=== PATIENT | male | born 1960 | race Two or more races ===

== ENCOUNTER 2020-05-03 13:26 | Emergency (ER) | payer MEDICAID, OTHER ==
[~2020-05-03] VITALS: Ht 170.2 cm; Wt 68.0 kg
--- NOTE | 2020-05-03 13:26 | NUR ---
PT FÉLIX FROM [facility] C/O COUGH AND CONGESTION, NAUSEA AND VOMITING. PT IS AAOX4, NOT IN RESPIRATORY DISTRESS, HOOKED TO SHORT GOODS DRIER, KEPT RESTED AND COMFORTABLE. WILL CONTINUE TO MONITOR.
--- NOTE | 2020-05-03 13:45 | NUR ---
IV LINE ESTABLISHED BLOOD DRAWN AND SENT TO LAB.
[2020-05-03] MEDS ORDERED: IV NS 0.9% 1,000 ML BAG IV ONE (14:30)
[2020-05-03] MEDS ORDERED: ACETAMINOPHEN ES 500 MG TABLET ONE (14:35)
--- NOTE | 2020-05-03 14:39 | NUR ---
URINAL GIVEN BUT UNABLE TO PROVIDE URINE SPECIMEN THIS TIME.
--- NOTE | 2020-05-03 14:40 | NUR ---
AIRBRUSH ARTIST PHOTOGRAPHY AT BEDSIDE FOR XRAY.
[2020-05-03 14:58] LABS: BASOPHILS % (AUTO) 0.5 % (0.0-2.0); EOSINOPHILS % (AUTO) 1.3 % (0.0-6.0); HEMATOCRIT 40 % (39-51); HEMOGLOBIN 13.5 g/dL (13.5-17.5); LYMPHOCYTES % (AUTO) 43.2 % (20.0-44.0); MEAN CORPUSCULAR HGB CONC 34 g/dl (31.0-36.0); MEAN CORPUSCULAR VOLUME 108 fL (80-96); MONOCYTES # (AUTO) 0.5 /CMM (0.1-1.30); MONOCYTES % (AUTO) 10.2 % (2.0-12.0); NEUTROPHILS # (AUTO) 2.1 /CMM (1.8-8.9); NEUTROPHILS % (AUTO) 44.8 % (43.0-81.0); PLATELET COUNT (AUTO) 138 /CMM (150-450); WHITE BLOOD COUNT (AUTO) 4.6 K/uL (4.3-11.0)
[2020-05-03] MEDS ORDERED: ACETAMINOPHEN 325 MG TABLET PO ONE (15:00)
[2020-05-03 15:01] LABS: CALCIUM, SERUM 8.5 mg/dL (8.5-10.1); CARBON DIOXIDE 27 mmol/L (21-32); CHLORIDE 102 mmol/L (98-107); CREATININE 0.6 mg/dL (0.6-1.3); GLUCOSE 75 mg/dL (74-106); POTASSIUM 3.1 mmol/L (3.5-5.1); SODIUM SERUM 140 mmol/L (136-145); UREA NITROGEN, BLOOD 10 mg/dL (7-18)
[2020-05-03 15:16] LABS: ALANINE AMINOTRANSFERASE 44 U/L (12-78); ALBUMIN 3.5 g/dL (3.4-5.0); ALKALINE PHOSPHATASE 75 U/L (46-116); ASPARTATE AMINOTRANSFERASE 146 U/L (15-37); BILIRUBIN,DIRECT 0.1 mg/dL (0.0-0.2); BILIRUBIN,TOTAL 0.4 mg/dL (0.2-1.0); TOTAL PROTEIN, SERUM 6.5 g/dL (6.4-8.2)
--- NOTE | 2020-05-03 15:58 | NUR ---
COVID SWAB OBTAINED AND SENT TO LAB.
--- NOTE | 2020-05-03 15:59 | NUR ---
CALLED [facility]. REFERENCE NUMBER [phone]. WILL CALL BACK WITH TRANSPORT INFO AND ETA.
[2020-05-03 16:40] LABS: BAND % (MANUAL) 1 % (0.0-5.0); LYMPHOCYTES % (MANUAL) 43 % (16-48); MONOCYTES % (MANUAL) 11 % (0-11.0); NEUTROPHILS % (MANUAL) 40 (42-76); REACTIVE LYMPHOCYTES 5 % (0-0)
--- NOTE | 2020-05-03 17:03 | NUR ---
CALLED [facility]. ETA 1 HOUR.
--- NOTE | 2020-05-03 18:05 | NUR ---
REPORT GIVEN TO EMT FOR PT TRANSFER BACK TO [facility].
--- NOTE | 2020-05-03 18:09 | NUR ---
CALLED [facility] FOR PT DISCHARGED BACK.
[2020-05-03 18:14] VITALS: BP 141/84
== END 2020-05-03 18:16 ==
LOC: ER 13:33
DX: R53.1 Weakness (principal); Z87.19 Personal history of other diseases of the digestive system; I11.0 Hypertensive heart disease with heart failure; I50.9 Heart failure, unspecified; J44.9 Chronic obstructive pulmonary disease, unspecified; R05 Cough; R06.02 Shortness of breath; Z20.828 Contact with and (suspected) exposure to other viral communicable diseases
CPT/HCPCS: 36415; 71045; 80048; 80076; 84484; 85025; 87426; 93005; 96360; 99285; J7030

== ENCOUNTER 2021-01-27 22:14 | Inpatient (IN) | payer OTHER ==
[~2021-01-27] VITALS: Ht 170.2 cm; Wt 56.2 kg
[2021-01-28] VITALS (8 sets, daily range): BP systolic 136–185; BP diastolic 91–110
--- NOTE | 2021-01-28 02:00 | NUR ---
TELERN RECEIVED DIRECT ADMITT FROM EMMIE HIGUERA A 60 Y/O MALE WITH CC OF SOB FOR 3 DAYS. DX. EXAC COPD. 02 2 L VIA NASAL CANNULA. EXERTIONAL SOB SEEN, AUDIBLE WHEEZING. WILL NOTIFY MD FOR ADMISSION ORDERS.
--- NOTE | 2021-01-28 02:30 | NUR ---
MSRN PATIENT STATED DID NOT EAT ANYTHING TODAY, SNACKS PROVIDED.
[2021-01-28] MEDS ORDERED: MAG HYDROX/AL HYDROX/SIMETH 30 ML UDC PO PRN (03:00)
[2021-01-28] MEDS ORDERED: ZOLPIDEM TARTRATE 5 MG TABLET PO PRN (03:00)
[2021-01-28] MEDS ORDERED: MAGNESIUM HYDROXIDE 30 ML UDC PO PRN (03:00)
[2021-01-28] MEDS ORDERED: Z GUARD REMEDY 2 OZ OINT TP PRN (03:00)
[2021-01-28] MEDS ORDERED: ACETAMINOPHEN 325 MG TABLET PO PRN (03:00)
[2021-01-28] MEDS ORDERED: ONDANSETRON HCL/PF 4 MG/2 ML VIAL IVP PRN (03:00)
[2021-01-28] MEDS ORDERED: METO-357 PO (03:17)
[2021-01-28] MEDS ORDERED: FLUT1BLS12 IH (03:17)
[2021-01-28] MEDS ORDERED: DEXT15DR6 EACHEYE (03:17)
[2021-01-28] MEDS ORDERED: POTA10CA43 PO (03:17)
[2021-01-28] MEDS ORDERED: ACET-73 PO (03:17)
[2021-01-28] MEDS ORDERED: TIOT18CA3 IH (03:17)
[2021-01-28] MEDS ORDERED: LOPE2CAP PO (03:17)
[2021-01-28] MEDS ORDERED: SERT50TA PO (03:17)
[2021-01-28] MEDS ORDERED: ASPI-1169 PO (03:17)
[2021-01-28] MEDS ORDERED: TAMS-12 PO (03:17)
[2021-01-28] MEDS ORDERED: PANT40TA2 PO (03:17)
[2021-01-28] MEDS ORDERED: AMYL1CAP58 PO (03:17)
[2021-01-28] MEDS ORDERED: SUCR1TAB31 PO (03:17)
[2021-01-28] MEDS ORDERED: ATOR20TA PO (03:17)
[2021-01-28] MEDS ORDERED: ALBU0.633 IH (03:17)
[2021-01-28] MEDS ORDERED: MIRT15TA7 PO (03:17)
[2021-01-28] MEDS ORDERED: POLYVINYL ALCOHOL 15 ML BOTTLE OP PRN (04:30)
--- NOTE | 2021-01-28 04:30 | NUR ---
TELERN FOUND IN RESTROOM HAVING BM. SEEN VERY SOB. ASSISTED BACK TO BED. PER REMEDIATION PROJECT ENGINEER REFUSED TO USE BSC OR BEDPAN. BEDREST INSTRUCTED AT THIS TIME. PAGED RT. NOTIFIED MD NEED PRN HHN TREATMENT AND MED FOR LOOSE STOOLS. PATIENT STATED HAD 2 LBM LATELY. HAS HX OF CDIFF PER RECORDS.
[2021-01-28] MEDS ORDERED: LOPERAMIDE HCL (2 MG CAP) 2 MG CAPSULE PO ONE (05:00)
[2021-01-28] MEDS ORDERED: LOPERAMIDE HCL (2 MG CAP) 2 MG CAPSULE PO PRN (05:00)
[2021-01-28] MEDS ORDERED: ALBUTEROL FS 2.5 MG/3 ML VIAL.NEB NEB PRN (05:00)
[2021-01-28] MEDS: ALBUTEROL FS 2.5 MG/3 ML VIAL.NEB NEB PRN (05:10)
[2021-01-28] MEDS: methylPREDNISolone SOD SUCC 40 MG/ML VIAL IV SCH ×3 (05:17→20:34)
--- NOTE | 2021-01-28 05:21 | NUR ---
TELERN IMMODIUM 2 CAPS ADMINISTERED ORDERED, RT AT BEDSIDE FOR BREATHING TREATMENT. COMPLETE BEDREST EMPHASIZED, SAFETY PRECAUTIONS INSTRUCTED. REMINDED TO CALL STAFF FOR ASSISTANCE OR FURTHER DISCOMFORTS.CONTINUED MONITORING
[2021-01-28 06:22] LABS: ABG BASE EXCESS -6.3 mmol/L; ABG OXYGEN SATURATION 87.8 % (92.0-98.5); ABG PCO2 40.8 mmHg (35.0-45.0); ABG PH 7.301 (7.350-7.450); ABG PO2 58.7 mmHg (75.0-100.0); AaDO2 92.8 mmHg; COHb 1.2 % (0.5-1.5); MetHb 0.1 % (0.0-1.5); O2Hb 86.7 % (94.0-97.0); SITE, ABG Right Radial; VENT MODE, BG N/C 2LPM
--- NOTE | 2021-01-28 06:22 | NUR ---
telern sob again ths time, just went to [facility] had bm. paged rt. abrafael done. xray at bedside. informed dr. VARGAS.
--- NOTE | 2021-01-28 06:25 | NUR ---
TELERN CALLED RAPID RESPONSE, DIFFICULTY BREATHING AFTER CXR WAS DONE. PAGED RT, STAT ABGS ON 2L VIA NC. NOTIFIED MD. CARLTON 261. RT AND ICU CN STAYED WITH PATIENT FOR AWHILE.BREATHING TREATMENT STARTED. ST TO SR ON THE MONITOR. CLOSELY WATCHED
--- NOTE | 2021-01-28 06:35 | NUR ---
TELERN RAPID RESPONSE CALLED OFF, PATIENT TO STAY , ABGS RESULTED.
[2021-01-28] MEDS: ALBUTEROL FS 2.5 MG/3 ML VIAL.NEB NEB SCH ×4 (06:38→19:12)
[2021-01-28 06:42] LABS: BASOPHILS % (AUTO) 1.3 % (0.0-2.0); HEMATOCRIT 39 % (39-51); HEMOGLOBIN 12.9 g/dL (13.5-17.5); LYMPHOCYTES # (AUTO) 0.4 /CMM (0.8-4.8); LYMPHOCYTES % (AUTO) 22.7 % (20.0-44.0); MEAN CORPUSCULAR HGB CONC 33 g/dl (31.0-36.0); MEAN CORPUSCULAR VOLUME 97 fL (80-96); MONOCYTES % (AUTO) 2.5 % (2.0-12.0); NEUTROPHILS # (AUTO) 1.2 /CMM (1.8-8.9); NEUTROPHILS % (AUTO) 73.5 % (43.0-81.0); PLATELET COUNT (AUTO) 110 /CMM (150-450); RED BLOOD CELL COUNT(AUTO) 4.04 MIL/uL (4.5-6.0)
--- NOTE | 2021-01-28 07:00 | NUR ---
TELERN STARTED TO FEEL BETTER THIS TIME, 02 2 L MAINTAINED.
[2021-01-28] MEDS ORDERED: FLUTICASONE/SALMETEROL 1 DISK IH SCH (07:05)
--- NOTE | 2021-01-28 07:30 | NUR ---
PT RECEIVED RESTING IN BED. NO S/S OR C/O PAIN NOTED. SIDERAILS UP X2, CALL LIGHT LEFT WITHIN REACH. WILL CONTINUE PLAN OF CARE.
[2021-01-28] MEDS ORDERED: IPRATROPIUM NEB FS 0.5 MG/2.5 ML AMPUL.NEB NEB PRN (07:35)
[2021-01-28] MEDS: IPRATROPIUM NEB FS 0.5 MG/2.5 ML AMPUL.NEB NEB SCH ×4 (07:35→19:12)
[2021-01-28] MEDS ORDERED: IPRATROPIUM NEB FS 0.5 MG/2.5 ML AMPUL.NEB NEB SCH ×2 (07:35)
[2021-01-28 07:43] LABS: THYROID STIMULATING HORMONE 0.415 uIU/mL (0.358-3.74)
[2021-01-28 07:44] LABS: WHITE BLOOD COUNT (AUTO) 1.7 K/uL (4.3-11.0)
[2021-01-28 08:06] LABS: ALBUMIN 3.3 g/dL (3.4-5.0); BILIRUBIN,TOTAL 0.3 mg/dL (0.2-1.0); CALCIUM, SERUM 7.7 mg/dL (8.5-10.1); MAGNESIUM 1.4 mg/dL (1.8-2.4); PHOSPHORUS 4.2 mg/dL (2.5-4.9); POTASSIUM 3.7 mmol/L (3.5-5.1)
[2021-01-28] MEDS: ASPIRIN 81 MG TAB.CHEW PO SCH (09:27)
[2021-01-28] MEDS: LIPASE/PROTEASE/AMYLASE 1 EACH CAPSULE.DR PO SCH ×3 (09:28→17:21)
[2021-01-28] MEDS: SUCRALFATE 1 G TABLET PO SCH ×4 (09:28→21:54)
[2021-01-28] MEDS: SERTRALINE HCL 50 MG TABLET PO SCH (09:28)
[2021-01-28] MEDS: PANTOPRAZOLE 40 MG TABLET.DR PO SCH (09:29)
[2021-01-28] MEDS: METOPROLOL SUCCINATE 50 MG TAB.SR.24H PO SCH (09:29)
[2021-01-28] MEDS: Magnesium 1GM/D5W 100ML PREMIX 100 ML IV SCH ×4 (10:37→14:53)
[2021-01-28] MEDS: ENOXAPARIN SODIUM 40 MG/0.4 ML DISP.SYRIN SQ SCH (10:38)
[2021-01-28 12:37] LABS: LYMPHOCYTES % (MANUAL) 25 % (16-48); MONOCYTES % (MANUAL) 3 % (0-11.0); NEUTROPHILS % (MANUAL) 72 (42-76)
[2021-01-28] MEDS: FLUTICASONE/VILANTEROL 1 EACH BLST.W.DEV IH SCH (13:01)
[2021-01-28] MEDS: HYDROCODONE/APAP 5/325MG TABLET PO PRN (15:02)
[2021-01-28] MEDS: TAMSULOSIN 0.4 MG CAP.SR.24H PO SCH (17:21)
[2021-01-28] MEDS: MORPHINE SULFATE INJ 2 MG/ML DISP.SYRIN IV PRN ×2 (17:21→22:09)
--- NOTE | 2021-01-28 18:20 | NUR ---
CHANGE OF SHIFT REPORT PT RESTING COMFORTABLY IN BED. NO S/S OR C/O PAIN OR DISTRESS NOTED. SIDE RAILS UP X2. CALL LIGHT LEFT WITHIN REACH. PT KEPT CLEAN, DRY, AND COMFORTABLE NO SIGNIFICANT CHANGES SINCE PREVIOUS SHIFT. WILL GIVE REPORT TO SOO DOOLEY.
--- NOTE | 2021-01-28 19:09 | NUR ---
PRELIMINARY RESULT OF ECHO SHOWED EF 20-25%. ADVISED RN AND DR. REEVES OF INITIAL FINDINGS.
--- NOTE | 2021-01-28 20:00 | NUR ---
PREDATOR CONTROL TRAPPER NOTES PT DESATURATING AT 79% TO 85% AT 15 LPM VIA VENTURI MASK. NOTIFIED INDY DENTAL PROSTHETIST FOR EPIC. WITH NEW ORDERS TO PUT ON NOC BIPAP FOR NOW. ORDERS NOTED AND CARRIED OUT. WILL CONTINUE TO MONITOR.
--- NOTE | 2021-01-28 20:43 | NUR ---
CARBONATING STONE CLEANER NOTES DR CARROLL MADE AWARE RE PT'S CONDITION WITH NEW ORDERS TO TRANSFER PT TO ICU WITH BIPAP. WILL CONTINUE TO MONITOR.
--- NOTE | 2021-01-28 21:45 | NUR ---
MANAGER GAME NOTES PT TRANSFERRED TO ICU ROOM 254. REPORT GIVEN TO KEY RN FOR CONTINUITY OF CARE.
--- NOTE | 2021-01-28 21:50 | NUR ---
RECEIVED PT FROM 3W BY MODESTO RN ON HOSPITAL BED AWAKE A/O X3 ON VENTURI MASK 15L SPO2 92% NO SIGN AND SYMPTOMS OF DISTRESS NOTED, PT IS ABLE TO VERBALIZED NEEDS, HOOKED TO BED SIDE MONITOR WITH READING SINUS RHYTHM BP IS WNL, SAFETY MEASURE MAINTAINED BED ON LOWEST POSITION AND LOCKED SIDE RAILS UP X 2 CALL LIGHT WITHIN REACH, RT AT BEDSIDE PREPARING HIS BIPAP WILL CONT TO MONITOR THE PT
[2021-01-28] MEDS: MIRTAZAPINE 15 MG TABLET PO SCH (22:01)
[2021-01-28] MEDS: ATORVASTATIN 10 MG TABLET PO SCH (22:01)
--- NOTE | 2021-01-28 22:15 | NUR ---
RT PUT PT ON BIPAP SETTING PER MD TOLERTAING WELL WILL CONT TO MONITOR AND ABG WILL BE CHECKED AFTER 1 HR ORDER WAS MADE
[2021-01-28 23:33] LABS: ABG BASE EXCESS -2.7 mmol/L; ABG OXYGEN SATURATION 93.1 % (92.0-98.5); ABG PCO2 29.7 mmHg (35.0-45.0); ABG PO2 64.9 mmHg (75.0-100.0); AaDO2 186.1 mmHg; COHb 0.7 % (0.5-1.5); MetHb 0.3 % (0.0-1.5); O2Hb 92.2 % (94.0-97.0); SITE, ABG Right Radial; VENT MODE, BG ST 15/5
[2021-01-29] VITALS (46 sets, daily range): BP systolic 96–139; BP diastolic 67–103
[2021-01-29] MEDS: IPRATROPIUM NEB FS 0.5 MG/2.5 ML AMPUL.NEB NEB SCH ×7 (00:12→23:06)
--- NOTE | 2021-01-29 01:41 | NUR ---
PT RECEIVE WITH SOB ON 40% VENTURI MASK, SPO2 86% HR 120, HHN TX GIVEN AND SPO2 IMPROVE TO 88%, PLACED PT ON BIPAP 12/5 RATE 12 40% FIO2, SPO2 IMPROVE TO 90-92%, WILL CONTINUE TO MONITOR Addendum: 01/29/21 at 0144 by DEBBI ERICKSON RT Amended: Links added.
[2021-01-29 04:30] LABS: HEMATOCRIT 38 % (39-51); HEMOGLOBIN 12.5 g/dL (13.5-17.5); LYMPHOCYTES # (AUTO) 0.8 /CMM (0.8-4.8); LYMPHOCYTES % (AUTO) 10.7 % (20.0-44.0); MEAN CORPUSCULAR HGB CONC 33 g/dl (31.0-36.0); MEAN CORPUSCULAR VOLUME 96 fL (80-96); MONOCYTES # (AUTO) 0.7 /CMM (0.1-1.30); NEUTROPHILS # (AUTO) 5.8 /CMM (1.8-8.9); NEUTROPHILS % (AUTO) 80.3 % (43.0-81.0); PLATELET COUNT (AUTO) 90 /CMM (150-450); RED BLOOD CELL COUNT(AUTO) 3.96 MIL/uL (4.5-6.0); WHITE BLOOD COUNT (AUTO) 7.2 K/uL (4.3-11.0)
[2021-01-29 04:44] LABS: CALCIUM, SERUM 7.5 mg/dL (8.5-10.1); CREATININE 0.8 mg/dL (0.6-1.3); MAGNESIUM 2.4 mg/dL (1.8-2.4); PHOSPHORUS 3.6 mg/dL (2.5-4.9); POTASSIUM 4.2 mmol/L (3.5-5.1)
[2021-01-29] MEDS: methylPREDNISolone SOD SUCC 40 MG/ML VIAL IV SCH ×3 (05:04→20:06)
--- NOTE | 2021-01-29 05:42 | NUR ---
DR CARROLL JUST CALLED, INFORMED HIM THAT PT SPO2 IS ON 100% AND STILL CURRENTLY ON BIPAP, DR CARROLL ORDER TO REMOVED BIPAP AT 0700 AND PUT HIM ON 6L O2 VIA NC AND DO ABG @ 0800 NOTED AND CARRIED OUT, RT WAS INFORMED
--- NOTE | 2021-01-29 06:53 | NUR ---
PT REQUESTED TO REMOVED HIS BIPAP, AND PUT HIM ON O2 6L VIA NC SPO2 94% PT ABLE TO DRINK WATER, WILL CONT TO MONITOR
--- NOTE | 2021-01-29 07:00 | NUR ---
RN NOTES RECEIVED PT ON BED, A/Ox4, ON 6L O2 N/C , PT DENIES ANY DISTRESS , O2 SAT WNL, ON TELE SR HR IN 90'S, LEFT AC IV SITE CLEAN, DRY AND INTACT, SR UP x3, CALL LIGHT WITHIN EASY REACH BED LOCKED AND IN LOWEST POSITION, CONTINUE TO MONITOR .
[2021-01-29] MEDS: ALBUTEROL FS 2.5 MG/3 ML VIAL.NEB NEB SCH ×4 (07:02→19:45)
[2021-01-29] MEDS: PANTOPRAZOLE 40 MG TABLET.DR PO SCH (08:06)
[2021-01-29] MEDS: SUCRALFATE 1 G TABLET PO SCH ×4 (08:07→21:18)
[2021-01-29] MEDS: LIPASE/PROTEASE/AMYLASE 1 EACH CAPSULE.DR PO SCH ×3 (08:07→17:00)
[2021-01-29] MEDS: METOPROLOL SUCCINATE 50 MG TAB.SR.24H PO SCH (08:07)
[2021-01-29] MEDS: SERTRALINE HCL 50 MG TABLET PO SCH (08:07)
[2021-01-29] MEDS: ASPIRIN 81 MG TAB.CHEW PO SCH (08:07)
[2021-01-29] MEDS: FLUTICASONE/VILANTEROL 1 EACH BLST.W.DEV IH SCH (08:09)
[2021-01-29 08:11] LABS: ABG BASE EXCESS -1.3 mmol/L; ABG OXYGEN SATURATION 93.7 % (92.0-98.5); ABG PCO2 31.2 mmHg (35.0-45.0); ABG PO2 67.2 mmHg (75.0-100.0); COHb 0.5 % (0.5-1.5); MetHb 0.1 % (0.0-1.5); O2Hb 93.1 % (94.0-97.0); SITE, ABG Left Radial; VENT MODE, BG 6L NC
[2021-01-29] MEDS: ENOXAPARIN SODIUM 40 MG/0.4 ML DISP.SYRIN SQ SCH (10:19)
[2021-01-29] MEDS: ACETYLCYSTEINE 10% SOLN 400 MG/4 ML VIAL NEB SCH ×3 (11:03→23:06)
[2021-01-29] MEDS: LEVOFLOXACIN 750 MG /D5W 150ML 150 ML IV SCH (11:48)
--- NOTE | 2021-01-29 13:00 | NUR ---
RN NOTES VSS STABLE, NO DISTRESS NOTED , CONTINUE TO MONITOR .
[2021-01-29] MEDS: ENSURE ENLIVE 237 ML LIQUID (VANILLA) PO SCH (16:52)
[2021-01-29] MEDS: TAMSULOSIN 0.4 MG CAP.SR.24H PO SCH (17:00)
--- NOTE | 2021-01-29 18:16 | NUR ---
RN NOTES PT REMAINS ON 3L O2 N/C , O2 SAT WNL, NO SIGNIFICANT CHANGES NOTED ON THIS SHIFT, WILL ENDORSE TO LEAD RIDER NURSE FOR CONTINUITY OF CARE .
--- NOTE | 2021-01-29 19:30 | NUR ---
RN NOTES RECEIVED PATIENT IN BED AOX4, CONTINUES ON 3L/NC SATURATING 98% AT THIS TIME. TELE MONITOR SHOWS SR HR IN 90'S. IV SITE LAC #20G INTACT PATENT NO INFILTRATION NOTED FLUSHING WELL. ABD SOFT AND NON DISTENDED. SKIN DRY AND INTACT. SAFETY MEASURES IN PLACE, CALL LIGHT WITHIN REACH. WILL CONT TO MONITOR FOR RALEIGH.
[2021-01-29] MEDS: HYDROCODONE/APAP 5/325MG TABLET PO PRN (20:17)
[2021-01-29] MEDS: MORPHINE SULFATE INJ 2 MG/ML DISP.SYRIN IV PRN (20:31)
[2021-01-29] MEDS: MIRTAZAPINE 15 MG TABLET PO SCH (21:18)
[2021-01-29] MEDS: ATORVASTATIN 10 MG TABLET PO SCH (21:18)
[2021-01-30] VITALS (22 sets, daily range): BP systolic 102–149; BP diastolic 32–119
[2021-01-30] MEDS: IPRATROPIUM NEB FS 0.5 MG/2.5 ML AMPUL.NEB NEB SCH ×6 (02:36→23:50)
[2021-01-30] MEDS: methylPREDNISolone SOD SUCC 40 MG/ML VIAL IV SCH ×3 (05:06→21:02)
--- NOTE | 2021-01-30 06:32 | NUR ---
RN NOTES NO CHANGES NOTED DURING SHIFT. NO S/S OF ACUTE DISTRESS NOTED. ROUTINE AND PRN MEDICATIONS WERE GIVEN TOLERATED WELL.IV SITES INTACT NO S/S OF BLEEDING NO SWELLING NOTED. VITAL SIGNS WNL. CONTINUES WITH OXYGEN 3L/MIN VIA NC SATURATING 98%. KEPT CLEAN DRY AND COMFORTABLE. ALL NEEDS ATTENDED. WILL ENDORSE TO AM SHIFT FOR RALEIGH.
--- NOTE | 2021-01-30 07:15 | NUR ---
RN INITIAL NOTES RECEIVED PT ASLEEP, EASY TO AROUSE. ON 02 VIA NC AT 3LPM. HOB ELEVATED. NO SOB NOTED. DENIES ANY PAIN. IV LINE IN PLACE. PT COMFORTABLE. CLAL LIGHT WITHIN REACH. WILL MONITOR
[2021-01-30] MEDS: ALBUTEROL FS 2.5 MG/3 ML VIAL.NEB NEB SCH ×4 (07:35→20:05)
[2021-01-30] MEDS: ACETYLCYSTEINE 10% SOLN 400 MG/4 ML VIAL NEB SCH ×3 (07:35→23:50)
[2021-01-30] MEDS: LIPASE/PROTEASE/AMYLASE 1 EACH CAPSULE.DR PO SCH ×3 (07:42→17:02)
[2021-01-30] MEDS: SUCRALFATE 1 G TABLET PO SCH ×4 (07:42→21:03)
[2021-01-30] MEDS: PANTOPRAZOLE 40 MG TABLET.DR PO SCH (07:42)
[2021-01-30] MEDS: SERTRALINE HCL 50 MG TABLET PO SCH (08:21)
[2021-01-30] MEDS: ASPIRIN 81 MG TAB.CHEW PO SCH (08:21)
[2021-01-30] MEDS: LOSARTAN POTASSIUM 50 MG TABLET PO SCH (08:22)
[2021-01-30] MEDS: METOPROLOL SUCCINATE 50 MG TAB.SR.24H PO SCH (08:22)
[2021-01-30] MEDS: ENSURE ENLIVE 237 ML LIQUID (VANILLA) PO SCH ×3 (08:23→16:43)
[2021-01-30] MEDS: ENOXAPARIN SODIUM 40 MG/0.4 ML DISP.SYRIN SQ SCH (08:27)
[2021-01-30] MEDS: LEVOFLOXACIN 750 MG /D5W 150ML 150 ML IV SCH (10:05)
--- NOTE | 2021-01-30 13:00 | NUR ---
RN NOTES PT TRANSFERRED TO ROOM 107. PT A/O, ON 02 VIA NC AT 3LPM. NO SOB NOTED. DENIES ANY PAIN. IV LINE IN PLACE. CALL LIGHT WITHIN REACH. WILL MONITOR
[2021-01-30] MEDS: TAMSULOSIN 0.4 MG CAP.SR.24H PO SCH (17:02)
--- NOTE | 2021-01-30 18:12 | NUR ---
RN CLOSING NOTES NO SIGNIFICANT CHANGE NOTED. NO SOB NOTED. DENIES ANY PAIN. KEPT COMFORTABLE. WILL ENDORSE FOR CONTINUITY IF CARE
--- NOTE | 2021-01-30 19:30 | NUR ---
RN NOTE RECEIVED PATIENT IN BED, AO X 4, IN NO S/SX OF ACUTE DISTRESS AT THIS TIME, BREATHING IS EVEN AND UNLABORED, ON 3 L OF OXYGEN VIA NC, SATURATION AT 96%, SR ON THE MONITOR, HR IS 93. NOTED LEAKAGE OF FLUID FROM IV SITE AT LAC 20G, REMOVED AND RE-INSERTED ANOTHER IV LINE AT L UPPER ARM 20G, PATENT AND FLUSHING WELL, ASEPTIC TEHCNIQUE WAS OBSERVED DURING PROCEDURE. SAFETY MEASURES IMPLEMENTED. PATIENT BED ALARM IS ON. HEAD OF BED ELEVATED. BED IS LOCKED, IN LOWEST POSITION AND SIDE RAILS UP. CALL LIGHT WITHIN REACH OF THE PATIENT. WILL CONTINUE TO MONITOR AND REASSESS FOR ANY CHANGES.
[2021-01-30] MEDS: ATORVASTATIN 10 MG TABLET PO SCH (21:03)
[2021-01-30] MEDS: MIRTAZAPINE 15 MG TABLET PO SCH (21:03)
[2021-01-30] MEDS: MORPHINE SULFATE INJ 2 MG/ML DISP.SYRIN IV PRN (23:07)
[2021-01-31] VITALS: BP 153/98
[2021-01-31] MEDS: IPRATROPIUM NEB FS 0.5 MG/2.5 ML AMPUL.NEB NEB SCH ×6 (03:29→23:26)
[2021-01-31 04:00] VITALS: BP 145/98
[2021-01-31] MEDS: methylPREDNISolone SOD SUCC 40 MG/ML VIAL IV SCH ×3 (05:03→21:47)
[2021-01-31 06:29] LABS: BASOPHILS % (AUTO) 0.1 % (0.0-2.0); HEMATOCRIT 32 % (39-51); HEMOGLOBIN 10.5 g/dL (13.5-17.5); LYMPHOCYTES # (AUTO) 0.3 /CMM (0.8-4.8); LYMPHOCYTES % (AUTO) 8.6 % (20.0-44.0); MEAN CORPUSCULAR HGB CONC 33 g/dl (31.0-36.0); MEAN CORPUSCULAR VOLUME 97 fL (80-96); MONOCYTES # (AUTO) 0.3 /CMM (0.1-1.30); NEUTROPHILS # (AUTO) 3.1 /CMM (1.8-8.9); NEUTROPHILS % (AUTO) 84.3 % (43.0-81.0); PLATELET COUNT (AUTO) 80 /CMM (150-450); RED BLOOD CELL COUNT(AUTO) 3.24 MIL/uL (4.5-6.0); WHITE BLOOD COUNT (AUTO) 3.7 K/uL (4.3-11.0)
--- NOTE | 2021-01-31 07:05 | NUR ---
RN NOTE PATIENT ASLEEP IN BED, NO ACUTE DISTRESS NOTED, SATURATION AT >95% AT 3LPM VIA NC, SR ON THE MONITOR, IV SITE AT LAC 20G REMAINS PATENT. SAFETY MEASURES IMPLEMENTED. PATIENT BED IS LOCKED AND IN LOWEST POSITION. SIDE RAILS UP. CALL LIGHT WITHIN REACH OF THE PATIENT. ENDORSED TO JALEN DOOLEY FOR CONTINUATION OF CARE.
[2021-01-31 07:09] LABS: CALCIUM, SERUM 8.1 mg/dL (8.5-10.1); CREATININE 0.8 mg/dL (0.6-1.3); PHOSPHORUS 2.2 mg/dL (2.5-4.9); POTASSIUM 4.1 mmol/L (3.5-5.1)
--- NOTE | 2021-01-31 07:40 | NUR ---
RN OPENING NOTES RECEIVED PT AWAKE, ALERT, AND ORIENTED. NOT IN ANY RESPIRATORY DISTRESS. ON NASAL CANNULA 3L. TELEMETRY IN PLACE. DIAPER IN. PERIPHERAL LINE ON THE LEFT UPPER ARM. NO COMPLAINS OF PAIN OR DISCOMFORT AT THIS TIME. BED LOCKED AND KEPT IN LOWEST POSITION. SAFETY MEASURES IN PLACE. WILL CONTINUE TO MONITOR.
[2021-01-31] MEDS: PANTOPRAZOLE 40 MG TABLET.DR PO SCH (07:49)
[2021-01-31] MEDS: LIPASE/PROTEASE/AMYLASE 1 EACH CAPSULE.DR PO SCH ×3 (07:49→17:12)
[2021-01-31] MEDS: SUCRALFATE 1 G TABLET PO SCH ×4 (07:49→21:50)
[2021-01-31] MEDS: ALBUTEROL FS 2.5 MG/3 ML VIAL.NEB NEB SCH ×4 (07:53→20:36)
[2021-01-31] MEDS: ACETYLCYSTEINE 10% SOLN 400 MG/4 ML VIAL NEB SCH ×3 (07:53→23:26)
[2021-01-31 08:00] VITALS: BP 162/117
[2021-01-31] MEDS: SERTRALINE HCL 50 MG TABLET PO SCH (08:28)
[2021-01-31] MEDS: ASPIRIN 81 MG TAB.CHEW PO SCH (08:28)
[2021-01-31] MEDS: LOSARTAN POTASSIUM 50 MG TABLET PO SCH (08:29)
[2021-01-31] MEDS: ENSURE ENLIVE 237 ML LIQUID (VANILLA) PO SCH ×3 (08:29→16:51)
[2021-01-31] MEDS: METOPROLOL SUCCINATE 50 MG TAB.SR.24H PO SCH (08:29)
[2021-01-31] MEDS: ENOXAPARIN SODIUM 40 MG/0.4 ML DISP.SYRIN SQ SCH (08:32)
--- NOTE | 2021-01-31 09:00 | NUR ---
RN NOTES BP RE-CHECKED = 150/101
[2021-01-31] MEDS: MORPHINE SULFATE INJ 2 MG/ML DISP.SYRIN IV PRN ×3 (09:44→21:48)
[2021-01-31] MEDS: LEVOFLOXACIN 750 MG /D5W 150ML 150 ML IV SCH (10:18)
[2021-01-31] MEDS ORDERED: K PHOS NEUTRAL 250 MG TABLET PO ONE (11:30)
[2021-01-31 12:00] VITALS: BP 158/103
[2021-01-31 16:00] VITALS: BP 151/104
[2021-01-31] MEDS: TAMSULOSIN 0.4 MG CAP.SR.24H PO SCH (17:12)
--- NOTE | 2021-01-31 19:10 | NUR ---
RN CLOSING NOTES PATIENT'S CONDITION REMAINS UNCHANGED. SATURATING 95% ON 2L NASAL CANNULA. PAIN UNDER CONTROL AT THIS TIME. SAFETY CHECKS IN PLACE. WILL ENDORSE TO NIGHT RN FOR CONTINUITY OF CARE.
[2021-01-31 20:00] VITALS: BP 137/94
[2021-01-31] MEDS: ATORVASTATIN 10 MG TABLET PO SCH (21:48)
[2021-01-31] MEDS: MIRTAZAPINE 15 MG TABLET PO SCH (21:50)
[2021-02-01] VITALS: BP 147/100
[2021-02-01] MEDS: IPRATROPIUM NEB FS 0.5 MG/2.5 ML AMPUL.NEB NEB SCH ×7 (03:30→23:08)
[2021-02-01 04:00] VITALS: BP 116/89
--- NOTE | 2021-02-01 04:45 | NUR ---
RN notes In bed watching TV with no distress noted, breathing even and unlabored. On O2 at 2lpm via nasal cannula tolerating well. No significant change of condition. Alert and oriented x 4. Able to verbalize needs. Non-ambulatory. Incontinent of both bladder and bowel function. Uses diaper. Complained of pain 05/26, morphine 1mg given, with relief. Vital signs wnl. Kept clean and dry.
[2021-02-01] MEDS: methylPREDNISolone SOD SUCC 40 MG/ML VIAL IV SCH ×3 (05:18→21:10)
[2021-02-01] MEDS: MORPHINE SULFATE INJ 2 MG/ML DISP.SYRIN IV PRN ×3 (05:24→21:22)
[2021-02-01 06:36] LABS: CREATININE 0.8 mg/dL (0.6-1.3); MAGNESIUM 1.8 mg/dL (1.8-2.4); PHOSPHORUS 3.6 mg/dL (2.5-4.9); POTASSIUM 3.5 mmol/L (3.5-5.1)
--- NOTE | 2021-02-01 07:30 | NUR ---
DONOR SPECIALIST OPENING NOTES RECEIVED PT ON BED, AAOX4, RESPONSIVE TO ALL STIMULI. TELE MONITOR SHOWS SINUS RHYTHM 90. PT C/O SOB IN EXERTION, ON 3LPM VIA NASAL CANNULA. PT RECEIVING BREATHING TREATMENT AT THIS MOMENT. ABD SOFT AND NON DISTENDED WITH ACTIVE BOWEL SOUNDS. DENIES PAIN AND DISCOMFORT. SKIN WARM TO TOUCH AND DRY. IV SITE AT LEFT FA # 22 PATENT IN FLUSHING, NO S/SX OF INFILTRATION, HEP LOCK. ALL CONCERNS ATTENDED. BED IN LOW LOCKED POSITION, CALL LIGHT WITHIN REACHED, SRX2 UP FOR SAFETY. WILL CONT TO MONITOR CARE.
[2021-02-01] MEDS: SUCRALFATE 1 G TABLET PO SCH ×4 (07:32→21:10)
[2021-02-01] MEDS: PANTOPRAZOLE 40 MG TABLET.DR PO SCH (07:32)
[2021-02-01] MEDS: ALBUTEROL FS 2.5 MG/3 ML VIAL.NEB NEB SCH ×4 (07:34→20:13)
[2021-02-01] MEDS: ACETYLCYSTEINE 10% SOLN 400 MG/4 ML VIAL NEB SCH ×3 (07:34→23:08)
[2021-02-01 08:03] LABS: BASOPHILS % (AUTO) 0.2 % (0.0-2.0); HEMATOCRIT 35 % (39-51); HEMOGLOBIN 11.2 g/dL (13.5-17.5); LYMPHOCYTES # (AUTO) 0.6 /CMM (0.8-4.8); LYMPHOCYTES % (AUTO) 14.9 % (20.0-44.0); MEAN CORPUSCULAR HGB CONC 32 g/dl (31.0-36.0); MEAN CORPUSCULAR VOLUME 99 fL (80-96); MONOCYTES # (AUTO) 0.3 /CMM (0.1-1.30); MONOCYTES % (AUTO) 6.5 % (2.0-12.0); NEUTROPHILS # (AUTO) 3.4 /CMM (1.8-8.9); NEUTROPHILS % (AUTO) 78.4 % (43.0-81.0); PLATELET COUNT (AUTO) 100 /CMM (150-450); RED BLOOD CELL COUNT(AUTO) 3.51 MIL/uL (4.5-6.0); WHITE BLOOD COUNT (AUTO) 4.4 K/uL (4.3-11.0)
[2021-02-01] MEDS: METOPROLOL SUCCINATE 50 MG TAB.SR.24H PO SCH ×2 (08:27→08:51)
[2021-02-01] MEDS: SERTRALINE HCL 50 MG TABLET PO SCH (08:27)
[2021-02-01] MEDS: LIPASE/PROTEASE/AMYLASE 1 EACH CAPSULE.DR PO SCH ×3 (08:27→17:15)
[2021-02-01] MEDS: LOSARTAN POTASSIUM 50 MG TABLET PO SCH (08:27)
[2021-02-01] MEDS: ENOXAPARIN SODIUM 40 MG/0.4 ML DISP.SYRIN SQ SCH (08:28)
[2021-02-01] MEDS: LEVOFLOXACIN (250MG) 250 MG TABLET PO SCH (08:28)
[2021-02-01] MEDS: ASPIRIN 81 MG TAB.CHEW PO SCH (08:28)
[2021-02-01] MEDS: ENSURE ENLIVE 237 ML LIQUID (VANILLA) PO SCH ×2 (08:29→12:26)
[2021-02-01] MEDS: VALSARTAN 80 MG TABLET PO SCH (08:51)
--- NOTE | 2021-02-01 08:51 | NUR ---
TUGBOAT PILOT NOTES RECEIVED NEW ORDER FROM DR. REEVES - TOPROL XL 100 MG TAB. 50 MG GIVEN 20 MINUTES AGO, PULLED OUT ANOTHER 50 MG 1 TAB IN PYXIS TO GIVE NEW ORDER. PT AWARE. PHARMACY AWARE OF THE ACTION. BP 157-107, HR 95.
[2021-02-01 08:57] VITALS: BP 159/107
--- NOTE | 2021-02-01 09:10 | NUR ---
WELL SERVICING RIG OPERATOR NOTES ASSESS PT DUE TO MOANING AT REST, C/O SOB, PT SATING 88% IN RA PER ASSESSMENT, PLACED BACK TO 3LPM VIA N/C. CONT TO MONITOR
[2021-02-01 12:00] VITALS: BP 143/99
[2021-02-01 16:29] VITALS: BP 149/100
[2021-02-01] MEDS: TAMSULOSIN 0.4 MG CAP.SR.24H PO SCH (17:15)
[2021-02-01] MEDS: ENSURE ENLIVE CHOC 237 ML CAN PO SCH (17:16)
--- NOTE | 2021-02-01 18:49 | NUR ---
SPORTS MANAGEMENT INTERN CLOSING NOTES PT AAOX4, IMPROVED SOB, 2-3 LPM NASAL CANNULA SATING 96-98%. BM TODAY. DENIES PAIN AND DISCOMFORT. NO NEW SKIN BREAKDOWN. TELE MONITOR SHOWS SINUS RHYTHM 86. IV SITE AT RIGHT FA # 22, PATENT IN FLUSHING, PRESENT OF BACKFLOW, SO S/SX OF INFILTRATION, SALINE LOCK. ALL CONCERNS ATTENDED. BED KEPT IN LOW LOCKED POSITION, SRX2 UP FRO SAFETY, SEMI FOWLERS POSITION. ALL CARE ATTENDED. ENDORSED CARE TO NEXT SHIFT.
[2021-02-01 20:00] VITALS: BP 155/103
[2021-02-01] MEDS: ATORVASTATIN 10 MG TABLET PO SCH (21:10)
[2021-02-01] MEDS: MIRTAZAPINE 15 MG TABLET PO SCH (21:10)
[2021-02-01] MEDS: ALBUTEROL FS 2.5 MG/3 ML VIAL.NEB NEB PRN (23:08)
[2021-02-02] VITALS: BP 152/104
[2021-02-02] MEDS: IPRATROPIUM NEB FS 0.5 MG/2.5 ML AMPUL.NEB NEB SCH ×6 (03:04→22:46)
[2021-02-02 04:00] VITALS: BP 151/95
[2021-02-02] MEDS: methylPREDNISolone SOD SUCC 40 MG/ML VIAL IV SCH ×3 (05:34→20:59)
[2021-02-02 05:49] LABS: BASOPHILS % (AUTO) 0.2 % (0.0-2.0); HEMATOCRIT 31 % (39-51); LYMPHOCYTES # (AUTO) 0.5 /CMM (0.8-4.8); MEAN CORPUSCULAR HGB CONC 32 g/dl (31.0-36.0); MEAN CORPUSCULAR VOLUME 98 fL (80-96); MONOCYTES # (AUTO) 0.2 /CMM (0.1-1.30); MONOCYTES % (AUTO) 6.1 % (2.0-12.0); NEUTROPHILS % (AUTO) 80.7 % (43.0-81.0); PLATELET COUNT (AUTO) 96 /CMM (150-450); RED BLOOD CELL COUNT(AUTO) 3.15 MIL/uL (4.5-6.0); WHITE BLOOD COUNT (AUTO) 3.7 K/uL (4.3-11.0)
[2021-02-02 06:06] LABS: CALCIUM, SERUM 8.3 mg/dL (8.5-10.1); CREATININE 0.7 mg/dL (0.6-1.3); MAGNESIUM 1.8 mg/dL (1.8-2.4); PHOSPHORUS 4.5 mg/dL (2.5-4.9); POTASSIUM 3.9 mmol/L (3.5-5.1)
--- NOTE | 2021-02-02 06:46 | NUR ---
RN CLOSING NOTES, PATIENT IN BED , A/O X4, ABLE TO VERBALIZE NEEDS AND CONCERNS, ON 2LPM VIA NC, BREATHING EVEN AND UNLABORED, NO SOB/ACUTE RESPIRATORY DISTRESS THROUGHOUT THE NIGHT, BED LOCKED AND LOWEST POSITION AND SIDE RAILS UP X2, CALL LIGHT WITHIN REACH, WILL ENDORSE CONTINUITY OF CARE TO ONCOMING NURSE.
--- NOTE | 2021-02-02 06:49 | NUR ---
RN CLOSING NOTES, PATIENT IN BED , A/O X4, ABLE TO VERBALIZE NEEDS AND CONCERNS, ON 2LPM VIA NC, BREATHING EVEN AND UNLABORED, NO SOB/ACUTE RESPIRATORY DISTRESS THROUGHOUT THE NIGHT, BED LOCKED AND LOWEST POSITION AND SIDE RAILS UP X2, CALL LIGHT WITHIN REACH, WILL ENDORSE CONTINUITY OF CARE TO ONCOMING NURSE. Addendum: 02/02/21 at 0650 by JEAN-PAUL MONTGOMERY RN WRONG ENTRY
[2021-02-02] MEDS: ALBUTEROL FS 2.5 MG/3 ML VIAL.NEB NEB SCH ×4 (07:15→19:58)
[2021-02-02] MEDS: ACETYLCYSTEINE 10% SOLN 400 MG/4 ML VIAL NEB SCH ×3 (07:15→22:46)
--- NOTE | 2021-02-02 07:30 | NUR ---
SALES AMBASSADOR AM NOTES RECEIVED PT IN BED, AAOX4, RESPONSIVE TO ALL STIMULI. ON 2L O2 VIA NASAL CANULA, NOT IN ANY DISTRESS, C/O SOB ON EXERTION, SINUS RHYTHM HR 85 ON MONITOR, DENIES CHEST PAIN OR DISCOMFORT AT THIS TIME, IV ACCESS TO LEFT FA G 22, FLUSHES WELL SITE CLEAR. PT RECEIVING BREATHING TREATMENTS. PATIENT WITH SKIN DISCOLORATIONS ON BOTH ARMS, OTHERWISE, SKIN IS INTACT. REGULAR DIET. BEDBOUND AT THIS TIME. POC DISCUSSED, VERBALIZED UNDERSTANDING. FOR POSSIBLE CTCA TODAY PER DR. REEVES. NEEDS ANTICIPATED. BED LOW LOCKED. CALL LIGHT WITHIN REACH, WILL CONTINUE TO MONITOR.
[2021-02-02 08:00] VITALS: BP 160/104
[2021-02-02] MEDS: PANTOPRAZOLE 40 MG TABLET.DR PO SCH (08:12)
[2021-02-02] MEDS: LIPASE/PROTEASE/AMYLASE 1 EACH CAPSULE.DR PO SCH ×3 (08:12→18:02)
[2021-02-02] MEDS: ENSURE ENLIVE CHOC 237 ML CAN PO SCH ×2 (08:12→14:11)
[2021-02-02] MEDS: SUCRALFATE 1 G TABLET PO SCH ×4 (08:12→21:00)
[2021-02-02] MEDS: ASPIRIN 81 MG TAB.CHEW PO SCH (08:25)
[2021-02-02] MEDS: VALSARTAN 80 MG TABLET PO SCH (08:26)
[2021-02-02] MEDS: LEVOFLOXACIN (250MG) 250 MG TABLET PO SCH (08:27)
[2021-02-02] MEDS: SERTRALINE HCL 50 MG TABLET PO SCH (08:27)
[2021-02-02] MEDS: METOPROLOL SUCCINATE 50 MG TAB.SR.24H PO SCH (08:27)
[2021-02-02] MEDS: ENOXAPARIN SODIUM 40 MG/0.4 ML DISP.SYRIN SQ SCH (08:28)
--- NOTE | 2021-02-02 09:30 | NUR ---
RN NOTES DUE MEDS GIVEN
--- NOTE | 2021-02-02 09:50 | NUR ---
RT Pt tried to ambulate on room air, pt was only able to take 2 steps from his bed when SpO2 decreased to 77%. Pt was placed back in bed and was placed back on supplemental O2.
[2021-02-02 10:04] LABS: ABG BASE EXCESS -0.2 mmol/L; ABG OXYGEN SATURATION 86.2 % (92.0-98.5); ABG PCO2 41.4 mmHg (35.0-45.0); ABG PH 7.394 (7.350-7.450); AaDO2 49.2 mmHg; COHb 0.5 % (0.5-1.5); MetHb 0.2 % (0.0-1.5); O2Hb 85.6 % (94.0-97.0); SITE, ABG Right Radial; VENT MODE, BG ROOM AIR
[2021-02-02] MEDS ORDERED: ENSURE ENLIVE 237 ML LIQUID (VANILLA) PO SCH (11:30)
[2021-02-02 12:00] VITALS: BP 153/102
[2021-02-02] MEDS: ENSURE CLEAR 237 ML LIQUID (MIX BERRY) PO SCH (12:58)
[2021-02-02] MEDS ORDERED: IOHEXOL-350 100 ML VIAL IV ONE ×2 (13:28→18:37)
[2021-02-02] MEDS ORDERED: METOPROLOL TARTRATE INJ 5 MG/5 ML AMPUL ONE ×4 (13:29→19:20)
[2021-02-02] MEDS ORDERED: NITROGLYCERIN 0.4 MG/TAB BOTTLE ONE ×2 (13:29→18:37)
[2021-02-02] MEDS ORDERED: CT SWABBABLE VALVE TRANS SET 1 EA INFUS.SET MC ONE ×2 (13:29→18:37)
[2021-02-02] MEDS ORDERED: IV NS 0.9% 0 ML IV ONE (13:29)
--- NOTE | 2021-02-02 14:31 | NUR ---
RN NOTES MERCEDES VICK NOTIFIED ABOUT BP 153/102 AND TESTER WAFER SUBSTRATE IT WAS 160/104 MORNING MEDS GIVEN AND BP WENT DOWN A BIT 155/90. NO PRN BP MEDS. PER MERCEDES, MIGHT NEED TO ADJUST HOME MEDICATIONS, SHE WILL TAKE A LOOK AT IT.
[2021-02-02 16:00] VITALS: BP 145/99
[2021-02-02] MEDS: TAMSULOSIN 0.4 MG CAP.SR.24H PO SCH (18:03)
[2021-02-02] MEDS ORDERED: IV NS 0.9% 250 ML IV ONE (18:37)
--- NOTE | 2021-02-02 18:54 | NUR ---
RN CLOSING NOTES, PATIENT IN BED , A/O X4, RESTING COMFORTABLY, ON 2LPM VIA NC, BREATHING EVEN AND UNLABORED, NO SOB/ACUTE RESPIRATORY DISTRESS THROUGHOUT THE SHIFT. BED LOCKED AND LOWEST POSITION AND SIDE RAILS UP X2, CALL LIGHT WITHIN REACH, ALL NEEDS MET. NO OTHER SIGNIFICANT CHANGE IN CONDITION. WILL ENDORSE TO NEXT SHIFT FOR RALEIGH..
--- NOTE | 2021-02-02 18:54 | NUR ---
RN OPENING NOTE RECEIVED PATIENT BUT PATIENT GOING TO [facility] THE CORONARY ARTERIES,
[2021-02-02 20:00] VITALS: BP 152/96
--- NOTE | 2021-02-02 20:00 | NUR ---
RN NOTE PATIENT RETURNED FROM [facility] OF THE CORONARY ARTERIES,,ALERT ORIENTED X4 VERBALLY RESPONSIVE,ABLE TO MAKE NEEDS KNOWN, ON 2L OXYGEN VIA NASAL CANNULA, O2:88% IV SITE IS ON LEFT UPPER ARM INTACT PATIENT INCONTINENT TO BOWEL/BLADDER,CALL LIGHT [id number] REACH,BED IN LOW POSITION AND LOCKED CONTINUE TO MONITOR.
[2021-02-02] MEDS: MIRTAZAPINE 15 MG TABLET PO SCH (21:00)
[2021-02-02] MEDS: ATORVASTATIN 10 MG TABLET PO SCH (21:00)
[2021-02-02] MEDS: MORPHINE SULFATE INJ 2 MG/ML DISP.SYRIN IV PRN (23:12)
[2021-02-03] VITALS: BP 147/98
--- NOTE | 2021-02-03 00:46 | NUR ---
RT NOTE PLACED PT ON VENTURI MASK @ 40% ON 12LPM DUE TO LOW SPO2. RN ADRIAN AWARE. PT TOLERATING WELL. NO DISTRESS NOTED. SPO2 @ 91%.
[2021-02-03 04:00] VITALS: BP 149/99
[2021-02-03] MEDS: IPRATROPIUM NEB FS 0.5 MG/2.5 ML AMPUL.NEB NEB SCH ×4 (04:00→15:49)
[2021-02-03] MEDS: methylPREDNISolone SOD SUCC 40 MG/ML VIAL IV SCH ×2 (05:46→13:55)
[2021-02-03 06:30] LABS: BASOPHILS % (AUTO) 0.1 % (0.0-2.0); HEMATOCRIT 31 % (39-51); HEMOGLOBIN 10.2 g/dL (13.5-17.5); LYMPHOCYTES # (AUTO) 0.4 /CMM (0.8-4.8); LYMPHOCYTES % (AUTO) 8.8 % (20.0-44.0); MEAN CORPUSCULAR HGB CONC 33 g/dl (31.0-36.0); MEAN CORPUSCULAR VOLUME 98 fL (80-96); MONOCYTES # (AUTO) 0.2 /CMM (0.1-1.30); MONOCYTES % (AUTO) 5.4 % (2.0-12.0); NEUTROPHILS # (AUTO) 3.7 /CMM (1.8-8.9); NEUTROPHILS % (AUTO) 85.7 % (43.0-81.0); PLATELET COUNT (AUTO) 120 /CMM (150-450); RED BLOOD CELL COUNT(AUTO) 3.13 MIL/uL (4.5-6.0); WHITE BLOOD COUNT (AUTO) 4.3 K/uL (4.3-11.0)
--- NOTE | 2021-02-03 06:40 | NUR ---
RN CLOSING NOTE PATIENT REMAINS ON ALERT ORIENTED X4 VERBALLY RESPONSIVE ON 2L OXYGEN VIA NASAL CANNULA, O2:91% INCONTINENT TO BOWEL AND BLADDER,IV SITE IS ON LEFT UPPER ARM INTACT PATENT ALL DUE MEDS GIVEN MD ORDERED KEEP CLEAN AND DRY ALL THE TIME,KEEP COMFORTABLE,ALL NEEDS MET ENDORSE NEXT COMING SHIFT FOR CONTINUATION OF CARE
[2021-02-03 07:10] LABS: CALCIUM, SERUM 8.6 mg/dL (8.5-10.1); CREATININE 0.9 mg/dL (0.6-1.3); MAGNESIUM 1.4 mg/dL (1.8-2.4); PHOSPHORUS 5.1 mg/dL (2.5-4.9); POTASSIUM 3.9 mmol/L (3.5-5.1)
--- NOTE | 2021-02-03 07:30 | NUR ---
DECISION SCIENCE ANALYST AM NOTES RECEIVED PT IN BED, AAOX4, RESPONSIVE TO ALL STIMULI. ON 2L O2 VIA NASAL CANULA, NOT IN ANY DISTRESS, C/O SOB ON EXERTION, SINUS RHYTHM HR 84 ON MONITOR, DENIES CHEST PAIN OR DISCOMFORT AT THIS TIME, IV ACCESS TO LEFT UPPER ARM G 18, FLUSHES WELL SITE CLEAR. PT RECEIVING BREATHING TREATMENTS. PATIENT WITH SKIN DISCOLORATIONS ON BOTH ARMS, OTHERWISE, SKIN IS INTACT. REGULAR DIET. BEDBOUND AT THIS TIME. POC DISCUSSED, VERBALIZED UNDERSTANDING. NEEDS ANTICIPATED. BED LOW LOCKED. CALL LIGHT WITHIN REACH, WILL CONTINUE TO MONITOR.
[2021-02-03] MEDS: LIPASE/PROTEASE/AMYLASE 1 EACH CAPSULE.DR PO SCH ×3 (07:38→17:53)
[2021-02-03] MEDS: SUCRALFATE 1 G TABLET PO SCH ×3 (07:39→16:40)
[2021-02-03] MEDS: PANTOPRAZOLE 40 MG TABLET.DR PO SCH (07:39)
[2021-02-03] MEDS: HYDROCODONE/APAP 5/325MG TABLET PO PRN (07:39)
[2021-02-03] MEDS: ALBUTEROL FS 2.5 MG/3 ML VIAL.NEB NEB SCH ×3 (07:58→15:49)
[2021-02-03] MEDS: ACETYLCYSTEINE 10% SOLN 400 MG/4 ML VIAL NEB SCH ×2 (07:58→15:49)
[2021-02-03] MEDS: MORPHINE SULFATE INJ 2 MG/ML DISP.SYRIN IV PRN (08:00)
[2021-02-03 08:18] VITALS: BP 154/90
[2021-02-03] MEDS: ENOXAPARIN SODIUM 40 MG/0.4 ML DISP.SYRIN SQ SCH (08:30)
[2021-02-03] MEDS: VALSARTAN 80 MG TABLET PO SCH (08:31)
[2021-02-03] MEDS: METOPROLOL SUCCINATE 50 MG TAB.SR.24H PO SCH (08:33)
[2021-02-03] MEDS: ASPIRIN 81 MG TAB.CHEW PO SCH (08:33)
[2021-02-03] MEDS: SERTRALINE HCL 50 MG TABLET PO SCH (08:33)
[2021-02-03] MEDS: LEVOFLOXACIN (250MG) 250 MG TABLET PO SCH (08:34)
[2021-02-03] MEDS: ENSURE ENLIVE CHOC 237 ML CAN PO SCH (09:03)
--- NOTE | 2021-02-03 09:30 | NUR ---
RN NOTES DUE MEDS GIVEN
--- NOTE | 2021-02-03 11:31 | NUR ---
RN NOTES DC TELEMETRY PER DR. REEVES
[2021-02-03 12:00] VITALS: BP 146/95
[2021-02-03] MEDS: Magnesium 1GM/D5W 100ML PREMIX 100 ML IV SCH ×4 (12:00→16:39)
[2021-02-03] MEDS: ENSURE CLEAR 237 ML LIQUID (MIX BERRY) PO SCH (12:19)
--- NOTE | 2021-02-03 15:07 | NUR ---
RN NOTES DR. BROOKLYN SAMUELS AT BEDSIDE EARLIER, PER HIM, PT NEEDS TO BE ON OXYGEN 2L CONTINUOUS, PATIENT WAS SEEN BY PHYSICAL THERAPIST YESTERDAY UNABLE TO TOLERATE AMBULATING AND DESATURATED TO 77% WITHOUT O2. YUE CANTOR DIRECTOR OF SEARCH ENGINE MARKETING NOTIFIED.
--- NOTE | 2021-02-03 15:45 | NUR ---
RN NOTES REPORT GIVEN TO MARITZA FACILITY STAFF AT [facility] [phone]. INSTRUCTED PATIENT NEEDS TO BE ON OXYGEN AT 2LPM NASAL CANULA CONTINUOUS. PATIENT TO BE PICKED UP BY AMBULANCE AT 1700
[2021-02-03] MEDS ORDERED: Levofloxacin (250MG) PO (15:48)
[2021-02-03] MEDS ORDERED: PRED20TA PO (15:48)
[2021-02-03] MEDS ORDERED: VALS80TA2 PO (15:48)
[2021-02-03 16:00] VITALS: BP 158/95
--- NOTE | 2021-02-03 17:17 | NUR ---
MS RN NOTES PATIENT DISCHARGED TO [facility] TODAY PER MD IN STABLE CONDITION.PROVIDED DC INSTRUCTIONS, HEALTH TEACHINGS AND MED RECON LIST/PRESCRIPTION. PATIENT TO FOLLOW UP WITH PCP IN 1- WEEKS AND WILL MAKE OWN APPOINTMENT OR PER FACILITY PROTOCOL. IV ACCESS TO LEFT UPPER ARM REMOVED, CATH TIP COMPLETE, PRESSURE APPLIED X 10 MINUTES, NO BLEEDING, DRESSING IN PLACE. ALL BELONGINGS CHECKED AND RETURNED. ALL PAPERWORKS SIGNED. REPORT GIVEN TO FACILITY STAFF MARITZA LYONS. PER PLATE FORMER YUE - OXYGEN AND SUPPLIES ALREADY DELIVERED TO FACILITY. PATIENT PICKED UP BY 2 AMBULANCE CREW AND WILL TRANSPORT TO FACILITY,
[2021-02-03 17:53] VITALS: BP 164/104
[2021-02-03] MEDS: TAMSULOSIN 0.4 MG CAP.SR.24H PO SCH (17:54)
[2021-02-03] MEDS ORDERED: hydrALAZINE HCL 50 MG TABLET PO ONE (18:00)
[2021-02-04] MEDS ORDERED: methylPREDNISolone SOD SUCC 40 MG/ML VIAL IV SCH (09:00)
--- NOTE | 2021-02-04 11:03 | NUR ---
RECEIVED A CALL FROM [employer] PER RN RICKEY NEED RX AND DIDNOT RCVD,PER REQUEST RX CALL IN TO PREFERRED PHARMACY [facility] AND [facility] AND PROCESSED BY PHARMACIST WILFRED.RICKEY FROM [facility] MADE AWARE.
== END 2021-02-03 19:18 | DRG 720 ==
LOC: TELE 01-28 01:50 → ICU 01-28 21:58 → TELE1 01-30 13:11 → MEDSG1 02-03 11:32
PROVIDERS: ADMIT Registered Nurse; ATTEND Nurse Practitioner Acute Care
PROC: 5A09357 Assistance with Respiratory Ventilation, Less than 24 Consecutive Hours, Continuous Positive Airway Pressure (ICD-10-PCS; principal; 2021-01-29)
DX: A41.9 Sepsis, unspecified organism (principal); J96.21 Acute and chronic respiratory failure with hypoxia; I50.33 Acute on chronic diastolic (congestive) heart failure; J18.9 Pneumonia, unspecified organism; D69.6 Thrombocytopenia, unspecified; A04.71 Enterocolitis due to Clostridium difficile, recurrent; R64 Cachexia; I11.0 Hypertensive heart disease with heart failure; E83.42 Hypomagnesemia; E88.09 Other disorders of plasma-protein metabolism, not elsewhere classified; J44.0 Chronic obstructive pulmonary disease with (acute) lower respiratory infection; J44.1 Chronic obstructive pulmonary disease with (acute) exacerbation; F41.9 Anxiety disorder, unspecified; D72.819 Decreased white blood cell count, unspecified; E78.5 Hyperlipidemia, unspecified; I25.10 Atherosclerotic heart disease of native coronary artery without angina pectoris; Z86.16 Personal history of COVID-19; Z87.442 Personal history of urinary calculi; Z20.822 Contact with and (suspected) exposure to COVID-19; Z96.0 Presence of urogenital implants; K86.89 Other specified diseases of pancreas; R73.9 Hyperglycemia, unspecified; I70.0 Atherosclerosis of aorta; Z91.81 History of falling; Z72.0 Tobacco use; N20.2 Calculus of kidney with calculus of ureter; Y95 Nosocomial condition
CPT/HCPCS: 36415; 36600; 71045-TC; 75574; 80048-TC; 80053-TC; 80061-TC; 82803-TC; 82962-TC; 83735-TC; 84100-TC; 84443-TC; 85025-TC; 87070-TC; 87081-TC; 93307-TC; 94799-TC; 97112-TC; 97530-TC; 99082-TC; G0378; J1650; J1956; J2270; J2920; J3475; J3490; J7050; Q9967

== ENCOUNTER 2023-01-24 20:49 | Inpatient (IN) | payer OTHER ==
[~2023-01-24] VITALS: Ht 170.2 cm; Wt 46.7 kg
[~2023-01-24 20:49] MED LIST: ACET-73 PO; ALBU0.633 IH; AMYL1CAP58 PO; ASPI-1169 PO; ATOR20TA PO; DEXT15DR6 EACHEYE; FLUT1BLS12 IH; Levofloxacin (250MG) PO; METO-357 PO; MIRT-90 PO; PANT40TA2 PO; POTA10CA43 PO; PRED20TA PO; SERT50TA PO; SUCR1TAB31 PO; TAMS-12 PO; TIOT18CA3 IH; VALS80TA2 PO
--- NOTE | 2023-01-24 21:10 | NUR ---
MD INFORMED THAT PATIENT IS A LITTLE DROWSY.
--- NOTE | 2023-01-24 21:15 | NUR ---
BIBPA FROM SNF FOR SOB, COUGH AND CONGESTION FOR THE PAST FEW DAYS.PATIENT IS AAOX4. ABLE TO MAKE NEEDS KNOWN. CAME WITH O2 INH AT 1LPM SATURATING 100%. STREET LIGHT INSPECTOR PATIENT IS 93% ON RA. PATIENT IS ALITTLE DROWSY. BILATERAL LUNGS CLEAR, PATIENT HAS HX OF COPD
--- NOTE | 2023-01-24 22:00 | NUR ---
PASSENGER RATE CLERK AT BEDSIDE
[2023-01-24 22:12] LABS: BASOPHILS # (AUTO) 0.1 K/uL (0.0-0.2); BASOPHILS % (AUTO) 1.1 % (0.0-2.0); EOSINOPHILS % (AUTO) 1.3 % (0.0-6.0); HEMATOCRIT 42 % (39-51); HEMOGLOBIN 13.3 g/dL (13.5-17.5); LYMPHOCYTES # (AUTO) 2.6 K/uL (0.8-4.8); LYMPHOCYTES % (AUTO) 31.5 % (20.0-44.0); MEAN CORPUSCULAR HGB CONC 32 g/dl (31.0-36.0); MEAN CORPUSCULAR VOLUME 87 fL (80-96); MONOCYTES # (AUTO) 0.6 K/uL (0.1-1.30); MONOCYTES % (AUTO) 7.2 % (2.0-12.0); NEUTROPHILS # (AUTO) 4.8 K/uL (1.8-8.9); NEUTROPHILS % (AUTO) 58.9 % (43.0-81.0); PLATELET COUNT (AUTO) 225 K/uL (150-450); RED BLOOD CELL COUNT(AUTO) 4.82 MIL/uL (4.5-6.0); WHITE BLOOD COUNT (AUTO) 8.2 K/uL (4.3-11.0)
--- NOTE | 2023-01-24 22:14 | NUR ---
CXR DONE AT BEDSIDE
[2023-01-24 22:26] LABS: CALCIUM, SERUM 8.7 mg/dL (8.5-10.1); CARBON DIOXIDE 29 mmol/L (21-32); CHLORIDE 105 mmol/L (98-107); CREATININE 0.8 mg/dL (0.6-1.3); GLUCOSE 86 mg/dL (74-106); POTASSIUM 3.7 mmol/L (3.5-5.1); SODIUM SERUM 142 mmol/L (136-145); UREA NITROGEN, BLOOD 10 mg/dL (7-18)
[2023-01-24 22:32] LABS: ALANINE AMINOTRANSFERASE 15 U/L (12-78); ALBUMIN 3.3 g/dL (3.4-5.0); ALKALINE PHOSPHATASE 73 U/L (46-116); ASPARTATE AMINOTRANSFERASE 32 U/L (15-37); BILIRUBIN,DIRECT 0.1 mg/dL (0.0-0.2); BILIRUBIN,TOTAL 0.5 mg/dL (0.2-1.0); TOTAL PROTEIN, SERUM 6.8 g/dL (6.4-8.2)
--- NOTE | 2023-01-24 22:55 | NUR ---
TRAINING DEVELOPMENT DIRECTOR AT BEDSIDE
[2023-01-24] MEDS ORDERED: methylPREDNISolone SOD SUCC 125 MG/2ML VIAL IV ONE (23:00)
[2023-01-24] MEDS ORDERED: ONDANSETRON HCL/PF 4 MG/2 ML VIAL IV ONE (23:00)
[2023-01-24] MEDS ORDERED: ASPIRIN 325 MG TABLET PO ONE (23:00)
--- NOTE | 2023-01-24 23:00 | NUR ---
COVID AND RAPID INFLUENZA SWAB DONE AND SENT TO LAB
[2023-01-24] MEDS ORDERED: ASPIRIN 325 MG TABLET ONE (23:04)
[2023-01-24] MEDS ORDERED: ONDANSETRON HCL/PF 4 MG/2 ML VIAL ONE (23:04)
[2023-01-24] MEDS ORDERED: methylPREDNISolone SOD SUCC 125 MG/2ML VIAL ONE (23:04)
--- NOTE | 2023-01-24 23:10 | NUR ---
IV KAY G20 INSERTED ON RIGHT FA G20
[2023-01-24] MEDS ORDERED: IOHEXOL-300 100 ML VIAL IV ONE (23:29)
[2023-01-24] MEDS ORDERED: CT SWABBABLE VALVE TRANS SET 1 EA INFUS.SET MC ONE (23:29)
[2023-01-24] MEDS ORDERED: IV NS 0.9% 250 ML IV ONE (23:30)
--- NOTE | 2023-01-24 23:35 | NUR ---
PT BROUGHT TO CT DEPT
--- NOTE | 2023-01-24 23:41 | NUR ---
RETURN FROM CT
[2023-01-25] MEDS ORDERED: ZOLPIDEM TARTRATE 5 MG TABLET PO PRN (01:00)
[2023-01-25] MEDS ORDERED: Z GUARD REMEDY 4 OZ OINT TP PRN (01:00)
[2023-01-25] MEDS ORDERED: ONDANSETRON HCL/PF 4 MG/2 ML VIAL IVP PRN (01:00)
[2023-01-25] MEDS ORDERED: ACETAMINOPHEN 325 MG TABLET PO PRN (01:00)
[2023-01-25] MEDS ORDERED: IPRATROPIUM NEB FS 0.5 MG/2.5 ML AMPUL.NEB NEB PRN (01:00)
[2023-01-25] MEDS ORDERED: MAG HYDROX/AL HYDROX/SIMETH 30 ML UDC PO PRN (01:00)
[2023-01-25] MEDS ORDERED: ALBUTEROL FS 2.5 MG/3 ML VIAL.NEB NEB PRN (01:00)
[2023-01-25] MEDS ORDERED: MAGNESIUM HYDROXIDE 30 ML UDC PO PRN (01:00)
--- NOTE | 2023-01-25 01:17 | NUR ---
REPORT GIVEN TO SOUMYA HAM.
[2023-01-25] MEDS ORDERED: POLYVINYL ALCOHOL 15 ML BOTTLE EACHEYE PRN (01:30)
--- NOTE | 2023-01-25 01:36 | NUR ---
TRANSFERRED TO ROOM VIA ACLS PROTOCOL
[2023-01-25 01:37] VITALS: BP 164/105
--- NOTE | 2023-01-25 01:37 | NUR ---
CLINICAL TEAM MANAGER OPENING NOTE PT BROUGHT UP TO UNIT FROM ER AT THIS TIME. PT ADMITTED FROM ER TO TELE UNDER GROUP CARE WORKER [facility] FOR ADMITTING DX COPD EXACERBATION AND CHF. A/O X4 AND ABLE TO MAKE NEEDS KNOWN. PT STABLE ON O2 @ 2LPM VIA NC, TOLERATING WELL. SOB UPON EXCERTION. NO S/S OF RESPIRATORY DISTRESS. ON EXTERNAL TAXONOMIST READING SR 65 BPM. IV ACCESS RFA 20G, INTACT AND PATENT. AMBULATORY WITH ASSIST. SKIN INTACT. ORIENTED TO UNIT, ROOM, AND STAFF. PT BELONGINGS ACCOUNTED FOR AND BELONGINGS LIST SIGNED. SAFETY PRECAUTIONS IN PLACE. BED IN LOWEST LOCKED POSITION, HOB ELEVATED, SIDE RAILS UP X3, AND CALL LIGHT AND TABLE WITHIN REACH. ALL NEEDS MET AT THIS TIME.
--- NOTE | 2023-01-25 02:20 | NUR ---
RN NOTE PT NOTED WITH BP OF 164/105 HR 65. INFORMED PERL SOFTWARE ENGINEER KEH WITH NEW ORDER FOR CLONIDINE 0.1 MG PO ONCE. ORDER NOTED AND CARRIED OUT.
[2023-01-25] MEDS ORDERED: CLONIDINE HCL 0.1 MG TABLET PO ONE (02:30)
[2023-01-25 05:00] VITALS: BP 155/80
[2023-01-25] MEDS ORDERED: methylPREDNISolone SOD SUCC 40 MG/ML VIAL IV SCH (05:00)
[2023-01-25] MEDS ORDERED: CEFEPIME 1 GM in IV D5W 50 ML IV SCH (05:00)
[2023-01-25] MEDS ORDERED: CEFEPIME 1 GM VIAL ONE (05:10)
--- NOTE | 2023-01-25 06:37 | NUR ---
NAVAL AIRCREWMAN AVIONICS CLOSING NOTE PT RESTING IN BED, VERBALLY RESPONSIVE. A/O X4 AND ABLE TO MAKE NEEDS KNOWN. PT STABLE ON O2 @ 2LPM VIA NC, TOLERATING WELL. SOB UPON EXCERTION. NO S/S OF RESPIRATORY DISTRESS. ON EXTERNAL MACHINE STAMPER READING SB 56 BPM. IV ACCESS RFA 20G, INTACT AND PATENT. ALL DUE MEDS GIVEN ORDERED. SAFETY PRECAUTIONS IN PLACE AT ALL TIMES. BED IN LOWEST LOCKED POSITION, HOB ELEVATED, SIDE RAILS UP X3, AND CALL LIGHT AND TABLE WITHIN REACH. ALL NEEDS MET AT THIS TIME AND WILL ENDORSE TO ONCOMING NURSE FOR RALEIGH.
[2023-01-25] MEDS: SUCRALFATE 1 G TABLET PO SCH ×4 (07:30→21:44)
[2023-01-25] MEDS: IPRATROPIUM NEB FS 0.5 MG/2.5 ML AMPUL.NEB NEB SCH ×3 (07:35→20:11)
[2023-01-25 08:30] VITALS: BP 180/85
[2023-01-25] MEDS: ASPIRIN 81 MG TAB.CHEW PO SCH (08:38)
[2023-01-25] MEDS: METOPROLOL SUCCINATE 50 MG TAB.SR.24H PO SCH (08:38)
[2023-01-25] MEDS: SERTRALINE HCL 50 MG TABLET PO SCH (08:38)
[2023-01-25] MEDS: LIPASE/PROTEASE/AMYLASE 1 EACH CAPSULE.DR PO SCH ×3 (08:39→17:03)
[2023-01-25] MEDS: VALSARTAN 80 MG TABLET PO SCH (08:39)
[2023-01-25] MEDS: PANTOPRAZOLE 40 MG VIAL IV SCH (08:41)
[2023-01-25] MEDS: FLUTICASONE/VILANTEROL 1 EACH BLST.W.DEV IH SCH (08:42)
[2023-01-25] MEDS ORDERED: CEFEPIME 2 GM in IV D5W 100 ML IV SCH (10:00)
[2023-01-25] MEDS: SPIRONOLACTONE 25 MG TABLET PO SCH (10:24)
[2023-01-25] MEDS ORDERED: PIPERACILLIN /TAZOBACTAM 3.375 G in IV D5W 50 ML IV SCH (10:30)
[2023-01-25] MEDS ORDERED: CHOL100043 PO (11:33)
[2023-01-25] MEDS ORDERED: ACET-868 PO (11:33)
[2023-01-25] MEDS ORDERED: BACL10TA PO (11:33)
[2023-01-25] MEDS ORDERED: DOCU-141 PO (11:33)
[2023-01-25] MEDS ORDERED: METO25TA6 PO (11:33)
[2023-01-25] MEDS ORDERED: INSU100V7 SQ (11:33)
[2023-01-25] MEDS ORDERED: ACET200V4 INH (11:33)
[2023-01-25] MEDS ORDERED: MELA5TAB PO (11:33)
[2023-01-25] MEDS ORDERED: LOSA50TA39 PO (11:33)
[2023-01-25] MEDS ORDERED: ALBU8.5H8 IH (11:33)
[2023-01-25] MEDS ORDERED: ASPI-1420 PO (11:33)
[2023-01-25] MEDS ORDERED: FLUT1DIS5 IH (11:33)
[2023-01-25] MEDS ORDERED: ISOS10TA2 PO (11:33)
[2023-01-25] MEDS ORDERED: SENN-261 PO (11:33)
[2023-01-25] MEDS ORDERED: INSU100V39 SQ (11:33)
[2023-01-25] MEDS ORDERED: TRAM50TA2 PO (11:33)
[2023-01-25] MEDS: PIPERACILLIN /TAZOBACTAM 3.375 G in IV D5W 100 ML IV SCH ×2 (14:27→21:27)
[2023-01-25 16:00] VITALS: BP 160/80
[2023-01-25] MEDS: ENSURE ENLIVE CHOC 237 ML CAN PO SCH (17:01)
[2023-01-25] MEDS: TAMSULOSIN 0.4 MG CAP.SR.24H PO SCH (17:03)
--- NOTE | 2023-01-25 18:12 | NUR ---
END OF SHIFT SUMMARY PATIENT IS A/O X4. SATURATING WELL ON RA. AMBULATORY WITH SBA. INDEPENDENT WITH REPOSITIONING. CONTINENT, USES URINAL. IV ACCESS ON RFA #20 AND R WRIST 22G. TOLERATING ANTIBIOTICS WELL. SPUTUM COLLECTED BY RT. TRANSFERRED TO A NEGATIVE PRESSURE ROOM. SAFETY MEASURES MAINTAINED. BED IN LOWEST POSITION, BRAKES LOCKED. SIDE RAILS UP X2. CALL LIGHT WITHIN REACH. WILL ENDORSE CONTINUITY OF CARE TO ONCOMING SHIFT.
--- NOTE | 2023-01-25 19:30 | NUR ---
CAFETERIA TABLE ATTENDANT OPENING NOTE PT AWAKE IN BED. A/O X4 AND ABLE TO MAKE NEEDS KNOWN. PT STABLE ON O2 @ 2LPM VIA NC, TOLERATING WELL. SOB UPON EXCERTION. NO S/S OF RESPIRATORY DISTRESS. ON EXTERNAL CHURCH OFFICIAL READING SR 65 BPM. IV ACCESS RFA 20G, INTACT AND PATENT. SAFETY PRECAUTIONS IN PLACE. BED IN LOWEST LOCKED POSITION, HOB ELEVATED, SIDE RAILS UP X3, AIRBORNE PRECAUTIONS, AND CALL LIGHT AND TABLE WITHIN REACH. ALL NEEDS MET AT THIS TIME.
[2023-01-25 20:34] VITALS: BP 153/84
[2023-01-25] MEDS: MIRTAZAPINE 15 MG TABLET PO SCH (21:23)
[2023-01-25] MEDS: ATORVASTATIN 10 MG TABLET PO SCH (21:24)
[2023-01-26 01:04] VITALS: BP 178/80
--- NOTE | 2023-01-26 01:16 | NUR ---
RN NOTE PT NOTED WITH BP 178/80 AND HR 68. INFORMED SUPERVISOR LAST MODEL DEPARTMENT FELICIANO WITH NEW ORDER FOR HYDRALAZINE 10 MG IV PRN FOR SBP>160. ORDER NOTED AND CARRIED OUT. MEDICATION ADMINISTERED ORDERED. ALL NEEDS MET AT THIS TIME.
[2023-01-26] MEDS ORDERED: hydrALAZINE HCL IV 20 MG VIAL IV PRN (01:30)
[2023-01-26] MEDS: IPRATROPIUM NEB FS 0.5 MG/2.5 ML AMPUL.NEB NEB SCH ×4 (02:14→19:56)
[2023-01-26 04:27] VITALS: BP 126/70
[2023-01-26] MEDS: PIPERACILLIN /TAZOBACTAM 3.375 G in IV D5W 100 ML IV SCH ×3 (05:32→21:42)
--- NOTE | 2023-01-26 06:30 | NUR ---
GINGER FARMER CLOSING NOTE PT RESTING IN BED, VERBALLY RESPONSIVE. A/O X4 AND ABLE TO MAKE NEEDS KNOWN. PT STABLE ON O2 @ 2LPM VIA NC, TOLERATING WELL. SOB UPON EXCERTION. NO S/S OF RESPIRATORY DISTRESS. ON EXTERNAL BOBTAIL DRIVER READING SR 61 BPM. IV ACCESS RFA 20G, INTACT AND PATENT, RUNNING ZOSYN @ 25 ML/HR. ALL DUE MEDS GIVEN ORDERED. SAFETY PRECAUTIONS IN PLACE AT ALL TIMES. BED IN LOWEST LOCKED POSITION, HOB ELEVATED, SIDE RAILS UP X3, AIRBORNE ISOLATION, AND CALL LIGHT AND TABLE WITHIN REACH. ALL NEEDS MET AT THIS TIME AND WILL ENDORSE TO ONCOMING NURSE FOR [place].
[2023-01-26 07:00] VITALS: BP 145/72
[2023-01-26 07:22] LABS: BASOPHILS % (AUTO) 0.1 % (0.0-2.0); EOSINOPHILS % (AUTO) 0.1 % (0.0-6.0); HEMATOCRIT 45 % (39-51); HEMOGLOBIN 14.5 g/dL (13.5-17.5); LYMPHOCYTES % (AUTO) 20.6 % (20.0-44.0); MEAN CORPUSCULAR HGB CONC 33 g/dl (31.0-36.0); MEAN CORPUSCULAR VOLUME 86 fL (80-96); MONOCYTES # (AUTO) 0.7 K/uL (0.1-1.30); NEUTROPHILS % (AUTO) 72.2 % (43.0-81.0); PLATELET COUNT (AUTO) 214 K/uL (150-450); RED BLOOD CELL COUNT(AUTO) 5.23 MIL/uL (4.5-6.0); WHITE BLOOD COUNT (AUTO) 9.8 K/uL (4.3-11.0)
[2023-01-26] MEDS: SUCRALFATE 1 G TABLET PO SCH ×4 (07:32→21:12)
[2023-01-26] MEDS: LIPASE/PROTEASE/AMYLASE 1 EACH CAPSULE.DR PO SCH ×3 (07:38→17:11)
--- NOTE | 2023-01-26 07:40 | NUR ---
EDGE BURNISHER UPPERS OPENING NOTES RECEIVED PATIENT AWAKE IN BED. A/O X4 AND ABLE TO MAKE NEEDS KNOWN. PT STABLE ON O2 @ 2LPM VIA NC, TOLERATING WELL. SOB UPON EXERTION. NO S/S OF RESPIRATORY DISTRESS. ON EXTERNAL PREFABRICATOR READING SR 61 BPM. IV ACCESS RFA 20G SL, INTACT AND PATENT. SAFETY PRECAUTIONS IN PLACE. BED IN LOWEST LOCKED POSITION, HOB ELEVATED, SIDE RAILS UP X3, AIRBORNE PRECAUTIONS, CALL LIGHT AND TABLE WITHIN REACH. ALL NEEDS MET AT THIS TIME. WILL CONTINUE TO MONITOR PATIENT.
[2023-01-26 07:45] LABS: CALCIUM, SERUM 8.8 mg/dL (8.5-10.1); CREATININE 0.7 mg/dL (0.6-1.3); MAGNESIUM 1.6 mg/dL (1.8-2.4); PHOSPHORUS 3.2 mg/dL (2.5-4.9); POTASSIUM 3.2 mmol/L (3.5-5.1)
[2023-01-26] MEDS: ENSURE ENLIVE CHOC 237 ML CAN PO SCH ×2 (08:44→16:43)
[2023-01-26] MEDS: PANTOPRAZOLE 40 MG VIAL IV SCH (08:46)
[2023-01-26] MEDS: SPIRONOLACTONE 25 MG TABLET PO SCH (08:47)
[2023-01-26] MEDS: ASPIRIN 81 MG TAB.CHEW PO SCH (08:47)
[2023-01-26] MEDS: VALSARTAN 80 MG TABLET PO SCH (08:47)
[2023-01-26] MEDS: SERTRALINE HCL 50 MG TABLET PO SCH (08:47)
[2023-01-26] MEDS: METOPROLOL SUCCINATE 50 MG TAB.SR.24H PO SCH (08:48)
[2023-01-26] MEDS: FLUTICASONE/VILANTEROL 1 EACH BLST.W.DEV IH SCH (08:50)
[2023-01-26] MEDS ORDERED: POTASSIUM CHLORIDE 20 MEQ TAB.PRT.SR PO ONE (10:00)
[2023-01-26] MEDS: Magnesium 1GM/D5W 100ML PREMIX 100 ML IV SCH ×2 (10:40→11:42)
--- NOTE | 2023-01-26 10:50 | NUR ---
RN NOTES INFORMED DR. HICKS THAT PATIENT HAS VTE SCORE OF 4 AND NO CHEMICAL PROPHYLAXIS AT THIS MOMENT. SHE INSTRUCTED ME TO GIVE LOVENOX 40 Q24.
--- NOTE | 2023-01-26 15:01 | NUR ---
RN NOTES SPOKE TO RT AND ASKED HER TO GET SOME SPUTUM COLLECTION FROM THE P[ATIENT Addendum: 01/26/23 at 1504 by MICHAEL LOPEZ RN SPOKE TO RT AND ASKED HER TO GET SOME SPUTUM COLLECTION. SHE TOLD ME THAT THE PATIENT REFUSED AT THIS TIME.
[2023-01-26 16:00] VITALS: BP 134/74
[2023-01-26] MEDS: TAMSULOSIN 0.4 MG CAP.SR.24H PO SCH (17:12)
--- NOTE | 2023-01-26 18:48 | NUR ---
ADVANCED PRACTICE RN CLOSING NOTES PATIENT RESTING IN BED, VERBALLY RESPONSIVE. A/O X4 AND ABLE TO MAKE NEEDS KNOWN. PT STABLE ON O2 @ 2LPM VIA NC, TOLERATING WELL. SOB UPON EXERTION. NO S/S OF RESPIRATORY DISTRESS. ON EXTERNAL DISTRICT OR DISTRICT OFFICE DIRECTOR READING SR65 BPM. IV ACCESS RFA 20G SL, INTACT AND PATENT. ALL DUE MEDS GIVEN ORDERED. SAFETY PRECAUTIONS IN PLACE AT ALL TIMES. BED IN LOWEST LOCKED POSITION, HOB ELEVATED, SIDE RAILS UP X3, AIRBORNE ISOLATION, AND CALL LIGHT AND TABLE WITHIN REACH. ALL NEEDS MET AT THIS TIME AND WILL ENDORSE TO THE NIGHT NURSE FOR [place].
--- NOTE | 2023-01-26 18:59 | NUR ---
FOIL SPINNER NOTES SPUTUM COLLECTED @1850. CALLED LAB FOR [facility].
[2023-01-26 20:28] VITALS: BP 112/52
[2023-01-26] MEDS: MUPIROCIN OINT 2% 22 GM TUBE NS SCH (21:11)
[2023-01-26] MEDS: ATORVASTATIN 10 MG TABLET PO SCH (21:12)
[2023-01-26] MEDS: MIRTAZAPINE 15 MG TABLET PO SCH (21:12)
[2023-01-26] MEDS: ENOXAPARIN SODIUM 40 MG/0.4 ML DISP.SYRIN SQ SCH (21:17)
--- NOTE | 2023-01-26 21:35 | NUR ---
ANTICOAGULANT H/H 14.5 Plt 214 No s/s bleeding. Given Lovenox injection co-signed by SOUMYA Rosa.
[2023-01-27] VITALS: BP 152/56
[2023-01-27] MEDS: IPRATROPIUM NEB FS 0.5 MG/2.5 ML AMPUL.NEB NEB SCH ×4 (01:30→20:06)
[2023-01-27 05:38] VITALS: BP 152/80
[2023-01-27] MEDS: PIPERACILLIN /TAZOBACTAM 3.375 G in IV D5W 100 ML IV SCH ×3 (05:57→21:33)
--- NOTE | 2023-01-27 06:29 | NUR ---
END OF SHIFT REPORT Patient in bed, Alert Oriented x4. Oxygen sat high 90's in 2L NC. Sinus Rhythm, Jimbo in the Tele monitor. HR 60's. IV LFA intact, On IV abx. Afebrile during the shift. Denies pain, no c/o sob. No N/V, denies chest pain. Airborne precaution, r/o TB, Negative pressure room. Plan for cont IV abx. Awaits cx. Will endorse to oncoming RN.
[2023-01-27 06:59] LABS: BASOPHILS % (AUTO) 0.2 % (0.0-2.0); EOSINOPHILS % (AUTO) 2.6 % (0.0-6.0); HEMATOCRIT 45 % (39-51); HEMOGLOBIN 14.5 g/dL (13.5-17.5); LYMPHOCYTES # (AUTO) 2.6 K/uL (0.8-4.8); LYMPHOCYTES % (AUTO) 30.2 % (20.0-44.0); MEAN CORPUSCULAR HGB CONC 32 g/dl (31.0-36.0); MEAN CORPUSCULAR VOLUME 86 fL (80-96); MONOCYTES # (AUTO) 0.5 K/uL (0.1-1.30); MONOCYTES % (AUTO) 6.4 % (2.0-12.0); NEUTROPHILS # (AUTO) 5.1 K/uL (1.8-8.9); NEUTROPHILS % (AUTO) 60.6 % (43.0-81.0); PLATELET COUNT (AUTO) 189 K/uL (150-450); RED BLOOD CELL COUNT(AUTO) 5.24 MIL/uL (4.5-6.0); WHITE BLOOD COUNT (AUTO) 8.4 K/uL (4.3-11.0)
--- NOTE | 2023-01-27 07:10 | NUR ---
SAWMILL HAND OPENING NOTES RECEIVED PATIENT AWAKE IN BED. A/O X4 AND ABLE TO MAKE NEEDS KNOWN. PT STABLE ON O2 @ 2LPM VIA NC, TOLERATING WELL. SOB UPON EXERTION. NO S/S OF RESPIRATORY DISTRESS. ON EXTERNAL MACHINE I COREMAKER READING SR 62 BPM. IV ACCESS LFA 20G SL, INTACT AND PATENT. SAFETY PRECAUTIONS IN PLACE. BED IN LOWEST LOCKED POSITION, HOB ELEVATED, SIDE RAILS UP X3, AIRBORNE PRECAUTIONS, CALL LIGHT AND TABLE WITHIN REACH. ALL NEEDS MET AT THIS TIME. WILL CONTINUE TO MONITOR PATIENT FOR [place].
[2023-01-27 07:14] LABS: CALCIUM, SERUM 8.5 mg/dL (8.5-10.1); CREATININE 0.8 mg/dL (0.6-1.3); MAGNESIUM 1.9 mg/dL (1.8-2.4); PHOSPHORUS 3.1 mg/dL (2.5-4.9); POTASSIUM 3.3 mmol/L (3.5-5.1)
[2023-01-27] MEDS: SERTRALINE HCL 50 MG TABLET PO SCH (08:22)
[2023-01-27] MEDS: SPIRONOLACTONE 25 MG TABLET PO SCH (08:23)
[2023-01-27] MEDS: VALSARTAN 80 MG TABLET PO SCH (08:24)
[2023-01-27] MEDS: PANTOPRAZOLE 40 MG TABLET.DR PO SCH (08:24)
[2023-01-27] MEDS: SUCRALFATE 1 G TABLET PO SCH ×4 (08:25→21:33)
[2023-01-27] MEDS: METOPROLOL SUCCINATE 50 MG TAB.SR.24H PO SCH (08:25)
[2023-01-27] MEDS: LIPASE/PROTEASE/AMYLASE 1 EACH CAPSULE.DR PO SCH ×3 (08:25→17:08)
[2023-01-27 08:30] VITALS: BP 147/93
[2023-01-27] MEDS: ENSURE ENLIVE CHOC 237 ML CAN PO SCH ×2 (08:30→17:07)
[2023-01-27] MEDS: ASPIRIN 81 MG TAB.CHEW PO SCH (09:39)
[2023-01-27] MEDS ORDERED: POTASSIUM CHLORIDE 20 MEQ TAB.PRT.SR PO ONE (10:00)
[2023-01-27] MEDS: MUPIROCIN OINT 2% 22 GM TUBE NS SCH ×2 (10:01→21:25)
[2023-01-27] MEDS: FLUTICASONE/VILANTEROL 1 EACH BLST.W.DEV IH SCH (10:05)
[2023-01-27 11:07] VITALS: BP 133/102
[2023-01-27] MEDS: VANCOMYCIN 0.75 GM in IV D5W 250 ML IV SCH ×2 (12:27→23:43)
[2023-01-27 16:00] VITALS: BP 146/77
[2023-01-27] MEDS: TAMSULOSIN 0.4 MG CAP.SR.24H PO SCH (17:08)
--- NOTE | 2023-01-27 18:51 | NUR ---
ARTIFICIAL PEARL MAKER CLOSING NOTES PATIENT RESTING IN BED, VERBALLY RESPONSIVE. A/O X4, ABLE TO MAKE NEEDS KNOWN. PT STABLE ON O2 @ 2LPM VIA NC, TOLERATING WELL. SOB UPON EXERTION. NO S/S OF RESPIRATORY DISTRESS. ON EXTERNAL MUSIC PRODUCER READING SR67 BPM. IV ACCESS LFA 20G SL, C/D/I. ALL DUE MEDICATIONS GIVEN ORDERED. SAFETY PROTOCOL IN PLACED AT ALL TIMES. WILL BE ENDORSED TO PM NURSE FOR [place].
[2023-01-27 20:00] VITALS: BP 107/84
--- NOTE | 2023-01-27 20:38 | NUR ---
SERVICE CREW LEADER NOTES RECEIVED PATIENT IN BED, ASLEEP. ON MODERATE HIGH BACK REST POSITION MAINTAINED ON NEGATIVE PRESSURE ROOM AND ISOLATION MAINTAINED. NO PAIN OR DISCOMFORT NOTED AT THIS TIME. WITH IV ACCESS AT LFA #22G PATENT AND INTACT ON SL. ATTACHED TO TELE MONITORING DEVICE MAINTAINED. AMBULATORY WITH MINIMAL ASSISTANCE. KEPT PATIENT WARM AND COMFORTABLE, KEPT SIDE RAIL UP X 2 ALL THE TIME, KEPT CALL LIGHT WITHIN AT REACH. SAFETY PRECAUTIONS MAINTAINED. AIRBORNE AND CONTACT PRECAUTIONS MAINTAINED. WILL CONTINUE TO MONITOR FOR [place].
[2023-01-27] MEDS: ENOXAPARIN SODIUM 40 MG/0.4 ML DISP.SYRIN SQ SCH (21:29)
[2023-01-27] MEDS: MIRTAZAPINE 15 MG TABLET PO SCH (21:33)
[2023-01-27] MEDS: ATORVASTATIN 10 MG TABLET PO SCH (21:33)
[2023-01-28] VITALS: BP 148/75
[2023-01-28] MEDS: IPRATROPIUM NEB FS 0.5 MG/2.5 ML AMPUL.NEB NEB SCH ×4 (01:20→19:58)
[2023-01-28 04:00] VITALS: BP 151/93
[2023-01-28] MEDS: PIPERACILLIN /TAZOBACTAM 3.375 G in IV D5W 100 ML IV SCH ×3 (05:36→21:04)
--- NOTE | 2023-01-28 06:40 | NUR ---
RN MS CLOSING NOTES PATIENT IS IN BED, ASLEEP. ON MODERATE HIGH BACK REST POSITION MAINTAINED ON NEGATIVE PRESSURE ROOM AND ISOLATION MAINTAINED. NO PAIN OR DISCOMFORT NOTED AT THIS TIME. WITH IV ACCESS AT LFA #22G PATENT AND INTACT ON SL. ATTACHED TO TELE MONITORING DEVICE MAINTAINED. AMBULATORY WITH MINIMAL ASSISTANCE. KEPT PATIENT WARM AND COMFORTABLE, KEPT SIDE RAIL UP X 2 ALL THE TIME, KEPT CALL LIGHT WITHIN AT REACH. SAFETY PRECAUTIONS MAINTAINED. AIRBORNE AND CONTACT PRECAUTIONS MAINTAINED.PM CARE RENDERED, INTAKE AND OUTPUT RECORDED, ALL DUE MEDICATIONS GIVEN ALL NEEDS ATTENDED. KEPT PATIENT WARM AND COMFORTABLE. WILL ENDORSED TO AM SHIFT FOR [place]
--- NOTE | 2023-01-28 07:10 | NUR ---
SALES DEVELOPMENT COORDINATOR OPENING NOTES RECEIVED PATIENT AWAKE IN BED. A/O X4 AND ABLE TO MAKE NEEDS KNOWN. PT STABLE ON O2 @ 2LPM VIA NC, TOLERATING WELL. SOB UPON EXERTION. NO S/S OF RESPIRATORY DISTRESS. ON EXTERNAL FERMENTATION ENGINEER READING SR 63 BPM. IV ACCESS LFA 20G SL, INTACT AND PATENT. SAFETY PRECAUTIONS IN PLACE. BED IN LOWEST LOCKED POSITION, HOB ELEVATED, SIDE RAILS UP X3, AIRBORNE AND CONTACT PRECAUTIONS, CALL LIGHT AND TABLE WITHIN REACH. ALL NEEDS MET AT THIS TIME. WILL CONTINUE TO MONITOR PATIENT FOR [place].
[2023-01-28 07:20] LABS: BASOPHILS # (AUTO) 0.1 K/uL (0.0-0.2); BASOPHILS % (AUTO) 0.7 % (0.0-2.0); EOSINOPHILS % (AUTO) 4.9 % (0.0-6.0); HEMATOCRIT 43 % (39-51); HEMOGLOBIN 13.7 g/dL (13.5-17.5); LYMPHOCYTES # (AUTO) 2.7 K/uL (0.8-4.8); LYMPHOCYTES % (AUTO) 35.6 % (20.0-44.0); MEAN CORPUSCULAR HGB CONC 32 g/dl (31.0-36.0); MEAN CORPUSCULAR VOLUME 87 fL (80-96); MONOCYTES # (AUTO) 0.6 K/uL (0.1-1.30); NEUTROPHILS # (AUTO) 3.8 K/uL (1.8-8.9); NEUTROPHILS % (AUTO) 50.8 % (43.0-81.0); PLATELET COUNT (AUTO) 183 K/uL (150-450); WHITE BLOOD COUNT (AUTO) 7.5 K/uL (4.3-11.0)
[2023-01-28 07:42] LABS: CALCIUM, SERUM 8.5 mg/dL (8.5-10.1); CREATININE 0.8 mg/dL (0.6-1.3); MAGNESIUM 1.7 mg/dL (1.8-2.4); PHOSPHORUS 3.3 mg/dL (2.5-4.9); POTASSIUM 3.5 mmol/L (3.5-5.1)
[2023-01-28] MEDS: PANTOPRAZOLE 40 MG TABLET.DR PO SCH (08:04)
[2023-01-28] MEDS: SUCRALFATE 1 G TABLET PO SCH ×4 (08:05→21:04)
[2023-01-28] MEDS: LIPASE/PROTEASE/AMYLASE 1 EACH CAPSULE.DR PO SCH ×3 (08:05→17:11)
[2023-01-28] MEDS: SPIRONOLACTONE 25 MG TABLET PO SCH (08:05)
[2023-01-28] MEDS: METOPROLOL SUCCINATE 50 MG TAB.SR.24H PO SCH (08:06)
[2023-01-28] MEDS: ASPIRIN 81 MG TAB.CHEW PO SCH (08:07)
[2023-01-28] MEDS: SERTRALINE HCL 50 MG TABLET PO SCH (08:07)
[2023-01-28] MEDS: VALSARTAN 80 MG TABLET PO SCH (08:14)
[2023-01-28] MEDS: ENSURE ENLIVE CHOC 237 ML CAN PO SCH ×2 (08:15→17:12)
[2023-01-28 08:32] VITALS: BP 155/103
[2023-01-28] MEDS: MUPIROCIN OINT 2% 22 GM TUBE NS SCH ×2 (08:51→21:35)
[2023-01-28] MEDS: FLUTICASONE/VILANTEROL 1 EACH BLST.W.DEV IH SCH (08:51)
[2023-01-28] MEDS: Magnesium 1GM/D5W 100ML PREMIX 100 ML IV SCH ×2 (09:39→10:50)
[2023-01-28 12:00] VITALS: BP 135/84
[2023-01-28] MEDS: VANCOMYCIN 0.75 GM in IV D5W 250 ML IV SCH (12:46)
[2023-01-28 16:10] VITALS: BP 157/93
[2023-01-28] MEDS: TAMSULOSIN 0.4 MG CAP.SR.24H PO SCH (17:11)
--- NOTE | 2023-01-28 19:30 | NUR ---
RN TEAM LEADER NOTES RECEIVED PATIENT AWAKE IN BED. PATIENT IS A/O TIMES 4. NO PAIN NOTED. NO SOB NOTED. NO DISTRESS NOTED. IV ACCESS ON THE LAC G # 18 INTACT AND FLUSHING WELL AND SL. PATIENT ABLE TO MAKE NEEDS KNOWN. ON O2 INHALATION VIA NASAL CANNULA AT 2L/MIN. O2 SAT NOTED 98%. PATINE IS ON TELE MONITOR READING SR. ON AIRBORNE PRECAUTION FOR POSSIBLE TB. PATIENT IN NEGATIVE PRESSURE ROOM . PATIENT ON TELE MONITOR READING SR. ALL SAFETY MEASURES IN PLACE. BED LOCKED IN THE LOWEST POSITION. CALL LIGHT AND TABLE IN EASY REACH. SIDE RAILS UP TIMES 2. WILL CONTINUE TO MONITOR CLOSELY.
[2023-01-28 20:00] VITALS: BP 131/65
--- NOTE | 2023-01-28 20:09 | NUR ---
DERRICK HELPER CLOSING NOTES PATIENT RESTING IN BED, VERBALLY RESPONSIVE. A/O X4, ABLE TO MAKE NEEDS KNOWN. PT STABLE ON O2 @ 2LPM VIA NC, TOLERATING WELL. SOB UPON EXERTION. NO S/S OF RESPIRATORY DISTRESS. ON EXTERNAL COMPUTER NUMERICAL CONTROL GRINDER READING SR68 BPM. IV ACCESS LAC 18G SL, C/D/I. ALL DUE MEDICATIONS GIVEN ORDERED. SAFETY PROTOCOL IN PLACED AT ALL TIMES. ENDORSED TO PM NURSE FOR [place].
[2023-01-28] MEDS: MIRTAZAPINE 15 MG TABLET PO SCH (21:04)
[2023-01-28] MEDS: ATORVASTATIN 10 MG TABLET PO SCH (21:04)
[2023-01-28] MEDS: ENOXAPARIN SODIUM 40 MG/0.4 ML DISP.SYRIN SQ SCH (21:05)
[2023-01-29] VITALS (7 sets, daily range): BP systolic 13–132; BP diastolic 70–97
[2023-01-29] MEDS: VANCOMYCIN 0.75 GM in IV D5W 250 ML IV SCH (00:51)
[2023-01-29] MEDS: IPRATROPIUM NEB FS 0.5 MG/2.5 ML AMPUL.NEB NEB SCH ×4 (01:30→19:56)
[2023-01-29] MEDS: PIPERACILLIN /TAZOBACTAM 3.375 G in IV D5W 100 ML IV SCH ×3 (05:23→21:45)
--- NOTE | 2023-01-29 06:46 | NUR ---
RUSSIAN RUBBER CLOSING NOTES PATIENT AWAKE IN BED. PATIENT IS A/O TIMES 4. NO PAIN NOTED. NO SOB NOTED. NO DISTRESS NOTED. IV ACCESS ON THE LAC G # 18 INTACT AND FLUSHING WELL AND SL. CURENTLY IV ATB ZOSYN IS RUNNING. PATIENT ABLE TO MAKE NEEDS KNOWN. ON O2 INHALATION VIA NASAL CANNULA AT 2L/MIN. O2 SAT NOTED 97%. PATINE IS ON TELE MONITOR READING SR, HR=76. ON AIRBORNE AND DROPLET PRECAUTION FOR POSSIBLE TB. PATIENT IS IN NEGATIVE PRESSURE ROOM . ALL DUE MEDS GIVEN ORDERED. REMIND THE PATIENT TO FILL THE CUP WITH SPUTUM BEFORE BREAKFAST. PATIENT VERBALIZED UNDERSTANDING. ALL SAFETY MEASURES IN PLACE. BED LOCKED IN THE LOWEST POSITION. CALL LIGHT AND TABLE IN EASY REACH. SIDE RAILS UP TIMES 2. WILL ENDORSE FOR [place].
[2023-01-29 07:31] LABS: BASOPHILS % (AUTO) 0.2 % (0.0-2.0); EOSINOPHILS % (AUTO) 4.6 % (0.0-6.0); HEMATOCRIT 42 % (39-51); HEMOGLOBIN 13.5 g/dL (13.5-17.5); LYMPHOCYTES # (AUTO) 2.3 K/uL (0.8-4.8); LYMPHOCYTES % (AUTO) 32.4 % (20.0-44.0); MEAN CORPUSCULAR HGB CONC 33 g/dl (31.0-36.0); MEAN CORPUSCULAR VOLUME 86 fL (80-96); MONOCYTES # (AUTO) 0.6 K/uL (0.1-1.30); MONOCYTES % (AUTO) 8.2 % (2.0-12.0); NEUTROPHILS # (AUTO) 3.8 K/uL (1.8-8.9); NEUTROPHILS % (AUTO) 54.6 % (43.0-81.0); PLATELET COUNT (AUTO) 165 K/uL (150-450); RED BLOOD CELL COUNT(AUTO) 4.84 MIL/uL (4.5-6.0); WHITE BLOOD COUNT (AUTO) 6.9 K/uL (4.3-11.0)
--- NOTE | 2023-01-29 07:35 | NUR ---
ADVANCED PRACTICE NURSE OPENING NOTE (DAYSHIFT) RECEIVED PATIENT AWAKE IN BED. A/O X 4 AND ABLE TO MAKE NEEDS KNOWN. PT STABLE ON O2 @ 2LPM VIA NC, TOLERATING WELL. SOB UPON EXERTION. NO S/S OF RESPIRATORY DISTRESS. ON EXTERNAL PUBLIC AFFAIRS MANAGER READING SR IN 60s BPM. IV ACCESS LFA 20G SL, INTACT AND PATENT. SAFETY PRECAUTIONS IN PLACE. BED IN LOWEST LOCKED POSITION, HOB ELEVATED, SIDE RAILS UP X3, AIRBORNE AND CONTACT PRECAUTIONS, CALL LIGHT AND TABLE WITHIN REACH. ALL NEEDS MET AT THIS TIME. WILL CONTINUE TO MONITOR AND CARE FOR PATIENT PER MD POC.
[2023-01-29 07:55] LABS: CALCIUM, SERUM 8.8 mg/dL (8.5-10.1); CREATININE 0.9 mg/dL (0.6-1.3); MAGNESIUM 1.8 mg/dL (1.8-2.4)
[2023-01-29] MEDS: MUPIROCIN OINT 2% 22 GM TUBE NS SCH ×2 (09:00→21:44)
[2023-01-29] MEDS: SERTRALINE HCL 50 MG TABLET PO SCH (09:38)
[2023-01-29] MEDS: SUCRALFATE 1 G TABLET PO SCH ×4 (09:38→21:44)
[2023-01-29] MEDS: SPIRONOLACTONE 25 MG TABLET PO SCH (09:38)
[2023-01-29] MEDS: PANTOPRAZOLE 40 MG TABLET.DR PO SCH (09:40)
[2023-01-29] MEDS: ASPIRIN 81 MG TAB.CHEW PO SCH (09:40)
[2023-01-29] MEDS: METOPROLOL SUCCINATE 50 MG TAB.SR.24H PO SCH (09:40)
[2023-01-29] MEDS: VALSARTAN 80 MG TABLET PO SCH (09:41)
[2023-01-29] MEDS: ENSURE ENLIVE CHOC 237 ML CAN PO SCH ×2 (09:43→17:14)
[2023-01-29] MEDS: LIPASE/PROTEASE/AMYLASE 1 EACH CAPSULE.DR PO SCH ×3 (10:06→17:15)
[2023-01-29] MEDS: FLUTICASONE/VILANTEROL 1 EACH BLST.W.DEV IH SCH (10:15)
[2023-01-29] MEDS: VANCOMYCIN 1 GM in IV D5W 250ml IV SCH (11:23)
--- NOTE | 2023-01-29 12:00 | NUR ---
MS SUPERVISOR BREW HOUSE NOTE DR. REEVES ORDERED PATIENT TRANSFERRED TO MED/SURG, AND TO DISCONTINUE TELEMETRY MONITORING. REMOVED TELEMETRY BOX /LEADS FROM PATIENT. LAST READING SR 76 BPM.
--- NOTE | 2023-01-29 13:55 | NUR ---
AGRICULTURAL RESEARCH TECHNICIAN IV CATHETER INFILTRATION/REPLACEMENT NOTE (DAYSHIFT) PATIENT'S IV CATHETER TO LEFT UPPER FOREARM INFILTRATED AND SWOLLEN BUMP APPEARED AT INSERTION SITE. REMOVED IV CATHETER FULLY INTACT. SWELLING SUBSIDED AND BUMP DISAPPEARED. NEW IV CATHETER, # 20 GAUGE INSERTED AT LOWER LEFT FOREARM.
[2023-01-29] MEDS: TAMSULOSIN 0.4 MG CAP.SR.24H PO SCH (17:15)
--- NOTE | 2023-01-29 18:55 | NUR ---
MS RN CLOSING NOTE (DAYSHIFT) PATIENT RESTING IN BED, A/O X 4, ABLE TO MAKE NEEDS KNOWN; STABLE ON NASAL CANNULA AT 2L/MIN, BREATHING EVENLY AND NO S/S OF DISTRESS NOTED; WITH IV ACCESS ON LEFT LOWER FOREARM # 20 GAUGE INFUSING NS @ KVO. MAINTAINED ON AIRBORNE PRECAUTIONS TO R/O TUBERCULOSIS; ADMINISTERED MEDICATIONS PRESCRIBED; PATIENT'S NEEDS ATTENDED; SAFETY MEASURES IMPLEMENTED, BED IN LOW AND LOCKED POSITION, SIDE RAILS UP X 2, CALL LIGHT AND TABLE WITHIN EASY REACH; WILL ENDORSE TO NIGHT NURSE FOR [place].
--- NOTE | 2023-01-29 19:30 | NUR ---
MS RN OPENING NOTE RECEIVED PATIENT FROM AM NURSE; PATIENT RESTING IN BED, A/O X 4, ABLE TO MAKE NEEDS KNOWN; STABLE ON NASAL CANNULA AT 2L/MIN, BREATHING EVENLY AND NO S/S OF DISTRESS NOTED; WITH IV ACCESS ON LAC G#18; MAINTAINED ON AIRBORNE AND DROPLET PRECAUTION TO R/O TUBERCULOSIS; ENCOURAGED VERBALIZATION OF NEEDS; SAFETY MEASURES IMPLEMENTED, BED IN LOW AND LOCKED POSITION, SIDE RAILS UP X 2, CALL LIGHT AND TABLE WITHIN EASY REACH; WILL CONTINUE TO MONITOR THROUGHOUT SHIFT
[2023-01-29] MEDS: MIRTAZAPINE 15 MG TABLET PO SCH (21:44)
[2023-01-29] MEDS: ATORVASTATIN 10 MG TABLET PO SCH (21:44)
[2023-01-29] MEDS: ENOXAPARIN SODIUM 40 MG/0.4 ML DISP.SYRIN SQ SCH (21:45)
[2023-01-30] MEDS: VANCOMYCIN 1 GM in IV D5W 250ml IV SCH ×2 (00:02→11:13)
[2023-01-30] MEDS: IPRATROPIUM NEB FS 0.5 MG/2.5 ML AMPUL.NEB NEB SCH ×4 (02:40→19:53)
[2023-01-30] MEDS: PIPERACILLIN /TAZOBACTAM 3.375 G in IV D5W 100 ML IV SCH ×3 (05:57→21:39)
--- NOTE | 2023-01-30 06:49 | NUR ---
MS RN CLOSING NOTE PATIENT RESTING IN BED, A/O X 4, ABLE TO MAKE NEEDS KNOWN; STABLE ON NASAL CANNULA AT 2L/MIN, BREATHING EVENLY AND NO S/S OF DISTRESS NOTED; WITH IV ACCESS ON LAC G#18 RUNNING WITH ZOSYN AT 25 ML/HR; MAINTAINED ON AIRBORNE AND DROPLET PRECAUTION TO R/O TUBERCULOSIS; ADMINISTERED MEDICATIONS PRESCRIBED; PATIENT'S NEEDS ATTENDED; MONITORED PATIENT ACCORDINGLY; SAFETY MEASURES IMPLEMENTED, BED IN LOW AND LOCKED POSITION, SIDE RAILS UP X 2, CALL LIGHT AND TABLE WITHIN EASY REACH; WILL ENDORSE TO AM NURSE FOR [place].
[2023-01-30 07:00] VITALS: BP 102/67
[2023-01-30 07:06] LABS: BASOPHILS % (AUTO) 0.3 % (0.0-2.0); EOSINOPHILS % (AUTO) 4.7 % (0.0-6.0); HEMATOCRIT 42 % (39-51); HEMOGLOBIN 13.3 g/dL (13.5-17.5); LYMPHOCYTES % (AUTO) 27.4 % (20.0-44.0); MEAN CORPUSCULAR HGB CONC 31 g/dl (31.0-36.0); MEAN CORPUSCULAR VOLUME 88 fL (80-96); MONOCYTES # (AUTO) 0.7 K/uL (0.1-1.30); MONOCYTES % (AUTO) 9.7 % (2.0-12.0); NEUTROPHILS # (AUTO) 4.2 K/uL (1.8-8.9); NEUTROPHILS % (AUTO) 57.9 % (43.0-81.0); PLATELET COUNT (AUTO) 170 K/uL (150-450); RED BLOOD CELL COUNT(AUTO) 4.82 MIL/uL (4.5-6.0); WHITE BLOOD COUNT (AUTO) 7.2 K/uL (4.3-11.0)
--- NOTE | 2023-01-30 07:20 | NUR ---
MS RN OPENING NOTES RECEIVED PATIENT AWAKE SITTING IN BED WATCHING TV, PT IS AOX4. PT IS ON ISOLATION AND IN NEGATIVE PRESSURE ROOM FOR POSSIBLE TB INFECTION. PT IS ON 2LPM VIA NC PRN, SATURATING AT 100% WITHOUT ANY DIFFICULTY. NOT ON ANY APPARENT ACUTE DISTRESS, DENIES PAIN WELL. IV ACCESS ON THE LFA G#20 INTACT AND FLUSHING WELL WITH RUNNING ATB ZOSYN AT THE MOMENT. ALL SAFETY MEASURES IN PLACE: BED LOCKED IN THE LOWEST AND LOCKED POSITION, GIN RAILS UP X2, CALL LIGHT AND TABLE WITHIN EASY REACH, PATIENT IS ORIENTED TO ROOM AND STAFF. AIRBORNE PRECAUTION IMPLEMENTED. WILL CONTINUE TO MONITOR CLOSELY.
[2023-01-30] MEDS: LIPASE/PROTEASE/AMYLASE 1 EACH CAPSULE.DR PO SCH ×3 (07:46→17:09)
[2023-01-30] MEDS: SUCRALFATE 1 G TABLET PO SCH ×4 (07:47→21:39)
[2023-01-30] MEDS: PANTOPRAZOLE 40 MG TABLET.DR PO SCH (07:47)
[2023-01-30] MEDS: ENSURE ENLIVE CHOC 237 ML CAN PO SCH ×2 (07:47→16:54)
[2023-01-30 07:56] LABS: CALCIUM, SERUM 8.8 mg/dL (8.5-10.1); CREATININE 0.8 mg/dL (0.6-1.3); MAGNESIUM 1.6 mg/dL (1.8-2.4); PHOSPHORUS 3.8 mg/dL (2.5-4.9); POTASSIUM 3.9 mmol/L (3.5-5.1)
[2023-01-30] MEDS: FLUTICASONE/VILANTEROL 1 EACH BLST.W.DEV IH SCH (08:33)
[2023-01-30] MEDS: MUPIROCIN OINT 2% 22 GM TUBE NS SCH ×2 (08:33→21:39)
[2023-01-30] MEDS: ASPIRIN 81 MG TAB.CHEW PO SCH (08:38)
[2023-01-30] MEDS: SPIRONOLACTONE 25 MG TABLET PO SCH (08:38)
[2023-01-30] MEDS: SERTRALINE HCL 50 MG TABLET PO SCH (08:38)
[2023-01-30] MEDS: VALSARTAN 80 MG TABLET PO SCH (08:39)
[2023-01-30] MEDS: METOPROLOL SUCCINATE 50 MG TAB.SR.24H PO SCH (08:39)
[2023-01-30] MEDS ORDERED: MAGNESIUM OXIDE 400 MG TABLET PO ONE (10:00)
[2023-01-30 16:16] VITALS: BP 104/63
[2023-01-30] MEDS: TAMSULOSIN 0.4 MG CAP.SR.24H PO SCH (17:03)
--- NOTE | 2023-01-30 18:34 | NUR ---
MS RN CLOSING NOTES PATIENT IN BED WATCHING TV, PT IS AOX4. AIRBORNE PRECAUTION ISOLATION IN NEGATIVE PRESSURE ROOM MAINTAINED ORDERED. PATIENT IS SEEN TO BE ABLE TO TOLERATED ROOM AIR WITHOUT DIFFICULTY AT THIS TIME, NOT IN ANY APPARENT ACUTE DISTRESS, DENIES PAIN WELL. STILL WITH IV ACCESS ON THE LFA G#20 INTACT AND FLUSHING WELL, SALINE LOCKED. ALL DUE MEDS GIVEN, ALL NEEDS MET. ALL SAFETY MEASURES MAINTAINED: BED LOCKED IN THE LOWEST AND LOCKED POSITION, SIDE RAILS UP X2, CALL LIGHT AND TABLE WITHIN EASY REACH. WILL ENDORSE TO CREDIT ASSESSMENT ANALYST NURSE.
--- NOTE | 2023-01-30 19:24 | NUR ---
MS RN OPENING NOTE PT AWAKE IN BED. A/O X4 AND ABLE TO MAKE NEEDS KNOWN. PT STABLE ON O2 @ 2LPM VIA NC, TOLERATING WELL. BREATHING EVEN AND UNLABORED. NO S/S OF RESPIRATORY DISTRESS. IV ACCESS LFA 20G, INTACT AND PATENT. SAFETY PRECAUTIONS IN PLACE. BED IN LOWEST LOCKED POSITION, HOB ELEVATED, SIDE RAILS UP X3, AIRBORNE PRECAUTIONS, AND CALL LIGHT AND TABLE WITHIN REACH. ALL NEEDS MET AT THIS TIME.
[2023-01-30 20:31] VITALS: BP 107/61
[2023-01-30] MEDS: ATORVASTATIN 10 MG TABLET PO SCH (21:39)
[2023-01-30] MEDS: MIRTAZAPINE 15 MG TABLET PO SCH (21:39)
[2023-01-30] MEDS: ENOXAPARIN SODIUM 40 MG/0.4 ML DISP.SYRIN SQ SCH (21:40)
[2023-01-31] MEDS: VANCOMYCIN 1 GM in IV D5W 250ml IV SCH ×2
--- NOTE | 2023-01-31 00:26 | NUR ---
RN NOTE VANCO TROUGH 26. HELD VANCO PER LEVEL ORDERED. MATT AT [facility] MADE AWARE.
[2023-01-31] MEDS: IPRATROPIUM NEB FS 0.5 MG/2.5 ML AMPUL.NEB NEB SCH ×4 (01:50→20:13)
[2023-01-31] MEDS: PIPERACILLIN /TAZOBACTAM 3.375 G in IV D5W 100 ML IV SCH ×3 (05:21→21:21)
--- NOTE | 2023-01-31 06:38 | NUR ---
MS RN CLOSING NOTE PT RESTING IN BED, VERBALLY RESPONSIVE. A/O X4 AND ABLE TO MAKE NEEDS KNOWN. PT STABLE ON O2 @ 2LPM VIA NC, TOLERATING WELL. SOB UPON EXCERTION. NO S/S OF RESPIRATORY DISTRESS. IV ACCESS LFA 20G, INTACT AND PATENT, RUNNING ZOSYN @ 25 ML/HR. ALL DUE MEDS GIVEN ORDERED. SAFETY PRECAUTIONS IN PLACE AT ALL TIMES. BED IN LOWEST LOCKED POSITION, HOB ELEVATED, SIDE RAILS UP X3, AIRBORNE ISOLATION, AND CALL LIGHT AND TABLE WITHIN REACH. ALL NEEDS MET AT THIS TIME AND WILL ENDORSE TO ONCOMING NURSE FOR [place].
--- NOTE | 2023-01-31 07:15 | NUR ---
MS RN OPENING NOTES RECEIVED PATIENT AWAKE SITTING IN BED, PT IS AOX4, CALM, COOPERATIVE. PT IS ON ISOLATION AND IN NEGATIVE PRESSURE ROOM FOR POSSIBLE TB INFECTION. PT IS ON 2LPM VIA NC PRN, SATURATING AT 98% WITHOUT ANY DIFFICULTY. NO APPARENT ACUTE DISTRESS, DENIES PAIN WELL. IV ACCESS ON THE LFA G#20 INTACT AND FLUSHING WELL WITH RUNNING ATB ZOSYN AT THE MOMENT. ALL SAFETY MEASURES IN PLACE: BED LOCKED IN THE LOWEST AND LOCKED POSITION, SIDE RAILS UP X2, CALL LIGHT AND TABLE WITHIN EASY REACH, PATIENT IS ORIENTED TO ROOM AND STAFF. AWAITING RESULTS OF AFB AND FUNGAL SMEARS. WILL CONTINUE TO MONITOR CLOSELY.
[2023-01-31] MEDS: SUCRALFATE 1 G TABLET PO SCH ×4 (07:51→21:20)
[2023-01-31] MEDS: PANTOPRAZOLE 40 MG TABLET.DR PO SCH (07:51)
[2023-01-31] MEDS: LIPASE/PROTEASE/AMYLASE 1 EACH CAPSULE.DR PO SCH ×3 (07:52→17:25)
[2023-01-31] MEDS: ENSURE ENLIVE CHOC 237 ML CAN PO SCH ×2 (07:52→17:25)
[2023-01-31] MEDS: SPIRONOLACTONE 25 MG TABLET PO SCH (08:01)
[2023-01-31] MEDS: FLUTICASONE/VILANTEROL 1 EACH BLST.W.DEV IH SCH (08:01)
[2023-01-31] MEDS: ASPIRIN 81 MG TAB.CHEW PO SCH (08:01)
[2023-01-31] MEDS: SERTRALINE HCL 50 MG TABLET PO SCH (08:01)
[2023-01-31] MEDS: MUPIROCIN OINT 2% 22 GM TUBE NS SCH ×2 (08:01→21:23)
[2023-01-31] MEDS: METOPROLOL SUCCINATE 50 MG TAB.SR.24H PO SCH ×2 (08:02→09:24)
[2023-01-31] MEDS: VALSARTAN 80 MG TABLET PO SCH (08:02)
[2023-01-31 08:17] VITALS: BP 99/61
[2023-01-31 09:14] LABS: BASOPHILS % (AUTO) 0.3 % (0.0-2.0); HEMATOCRIT 43 % (39-51); HEMOGLOBIN 13.7 g/dL (13.5-17.5); LYMPHOCYTES # (AUTO) 2.3 K/uL (0.8-4.8); LYMPHOCYTES % (AUTO) 27.3 % (20.0-44.0); MEAN CORPUSCULAR HGB CONC 32 g/dl (31.0-36.0); MEAN CORPUSCULAR VOLUME 88 fL (80-96); MONOCYTES # (AUTO) 0.8 K/uL (0.1-1.30); MONOCYTES % (AUTO) 9.1 % (2.0-12.0); NEUTROPHILS % (AUTO) 59.3 % (43.0-81.0); PLATELET COUNT (AUTO) 189 K/uL (150-450); RED BLOOD CELL COUNT(AUTO) 4.91 MIL/uL (4.5-6.0); WHITE BLOOD COUNT (AUTO) 8.3 K/uL (4.3-11.0)
--- NOTE | 2023-01-31 09:24 | NUR ---
RN NOTES - PATIENT REFUSED VALSARTAN 80 MG 2 TABS AGAIN WHEN BP WAS RECHECKED, PATIENT TOOK METOPROLOL 50 MG FOR BP FOLLOWS 105/65 HR 88. WILL CONTINUE TO MONITOR.
[2023-01-31 09:34] LABS: CALCIUM, SERUM 9.2 mg/dL (8.5-10.1); CREATININE 1.6 mg/dL (0.6-1.3); MAGNESIUM 1.7 mg/dL (1.8-2.4); PHOSPHORUS 3.7 mg/dL (2.5-4.9); POTASSIUM 3.6 mmol/L (3.5-5.1)
[2023-01-31] MEDS: VANCOMYCIN 0.75 GM in IV D5W 250 ML IV SCH (12:08)
--- NOTE | 2023-01-31 13:57 | NUR ---
RN NOTES - PATIENT REPORTED CRAMPING FELT ON BOTH HANDS, REPORTED TO MD. ABNORMAL LAB VALUES - MAGNESIUM -1.7 REPORTED
[2023-01-31 16:14] VITALS: BP 100/64
[2023-01-31] MEDS: TAMSULOSIN 0.4 MG CAP.SR.24H PO SCH (17:25)
--- NOTE | 2023-01-31 19:20 | NUR ---
MS RN CLOSING NOTES PATIENT IN BED TALKING TO SOMEONE OVER THE PHONE, PT IS AOX4. AIRBORNE PRECAUTION ISOLATION IN NEGATIVE PRESSURE ROOM MAINTAINED ORDERED. PATIENT IS SEEN TO BE ABLE TO TOLERATED ROOM AIR WITHOUT DIFFICULTY AT THIS TIME, NOT IN ANY APPARENT ACUTE DISTRESS, DENIES PAIN WELL. STILL WITH IV ACCESS ON THE LFA G#20 INTACT AND FLUSHING WELL, SALINE LOCKED. ALL DUE MEDS GIVEN, ALL NEEDS MET. ALL SAFETY MEASURES MAINTAINED: BED LOCKED IN THE LOWEST AND LOCKED POSITION, SIDE RAILS UP X2, CALL LIGHT AND TABLE WITHIN EASY REACH. WILL ENDORSE TO TRAFFIC SUPERVISOR NURSE.
--- NOTE | 2023-01-31 19:50 | NUR ---
MS RN OPENING NOTE RECEIVED PATIENT AWAKE, IN BED. PT IS A/O X4, ABLE TO MAKE NEEDS KNOWN. PT IS ON ISOLATION AND IN NEGATIVE PRESSURE ROOM FOR POSSIBLE TB INFECTION. PT IS ON 2 LPM VIA NC PRN, SATURATING AT 99% WITHOUT ANY DIFFICULTY. NO ACUTE DISTRESS NOTED. DENIES PAIN AT THIS TIME. IV ACCESS ON THE LEFT FA G#20 INTACT AND FLUSHING WELL. ALL SAFETY MEASURES IN PLACE: BED LOCKED IN THE LOWEST POSITION, SIDE RAILS UP X2, CALL LIGHT AND TABLE WITHIN EASY REACH. WILL CONTINUE TO MONITOR CLOSELY.
[2023-01-31 20:00] VITALS: BP 132/80
[2023-01-31] MEDS: MIRTAZAPINE 15 MG TABLET PO SCH (21:20)
[2023-01-31] MEDS: ATORVASTATIN 10 MG TABLET PO SCH (21:20)
[2023-01-31] MEDS: ENOXAPARIN SODIUM 40 MG/0.4 ML DISP.SYRIN SQ SCH (21:21)
[2023-02-01] MEDS: VANCOMYCIN 0.75 GM in IV D5W 250 ML IV SCH ×2 (00:52→12:19)
[2023-02-01] MEDS: IPRATROPIUM NEB FS 0.5 MG/2.5 ML AMPUL.NEB NEB SCH ×4 (02:23→19:51)
[2023-02-01] MEDS: PIPERACILLIN /TAZOBACTAM 3.375 G in IV D5W 100 ML IV SCH ×3 (05:57→21:36)
--- NOTE | 2023-02-01 06:50 | NUR ---
MS RN CLOSING NOTE LEFT PATIENT RESTING IN BED. PT IS A/O X4, ABLE TO MAKE NEEDS KNOWN. PT IS ON ISOLATION AND IN NEGATIVE PRESSURE ROOM FOR POSSIBLE TB INFECTION. PT IS ON 2 LPM VIA NC PRN, SATURATING AT 99% WITHOUT ANY DIFFICULTY. NO ACUTE DISTRESS NOTED. DENIES PAIN AT THIS TIME. IV ACCESS TO LEFT FA G#20 INTACT AND FLUSHING WELL. ALL SAFETY MEASURES IN PLACE: BED LOCKED IN THE LOWEST POSITION, SIDE RAILS UP X2, CALL LIGHT AND TABLE WITHIN EASY REACH. WILL ENDORSE PT TO AM SHIFT NURSE FOR [place].
[2023-02-01 07:10] LABS: BASOPHILS % (AUTO) 0.4 % (0.0-2.0); EOSINOPHILS % (AUTO) 3.9 % (0.0-6.0); HEMATOCRIT 40 % (39-51); HEMOGLOBIN 13.1 g/dL (13.5-17.5); LYMPHOCYTES % (AUTO) 25.5 % (20.0-44.0); MEAN CORPUSCULAR HGB CONC 33 g/dl (31.0-36.0); MEAN CORPUSCULAR VOLUME 86 fL (80-96); MONOCYTES # (AUTO) 1.1 K/uL (0.1-1.30); MONOCYTES % (AUTO) 13.3 % (2.0-12.0); NEUTROPHILS # (AUTO) 4.5 K/uL (1.8-8.9); NEUTROPHILS % (AUTO) 56.9 % (43.0-81.0); PLATELET COUNT (AUTO) 192 K/uL (150-450); RED BLOOD CELL COUNT(AUTO) 4.66 MIL/uL (4.5-6.0)
[2023-02-01 07:13] LABS: CREATININE 1.6 mg/dL (0.6-1.3); MAGNESIUM 1.7 mg/dL (1.8-2.4); PHOSPHORUS 3.9 mg/dL (2.5-4.9); POTASSIUM 3.8 mmol/L (3.5-5.1)
--- NOTE | 2023-02-01 07:20 | NUR ---
MS RN OPENING NOTES RECEIVED PATIENT AWAKE SITTING IN BED, PT IS AOX4. PT IS ON ISOLATION AND IN NEGATIVE PRESSURE ROOM FOR POSSIBLE TB INFECTION. PT IS ON ROOM AIR AT THIS MOMENT WITH NO SOB NOTED BUT WITH 2LPM VIA NC PRN ORDER, SATURATING AT 100% AT THE MOMENT WITHOUT ANY DIFFICULTY. NOT ON ANY APPARENT ACUTE DISTRESS, DENIES PAIN WELL. IV ACCESS ON THE LFA G#20 INTACT AND FLUSHING WELL WITH RUNNING ATB ZOSYN AT THE MOMENT. ALL SAFETY MEASURES IN PLACE: BED LOCKED IN THE LOWEST AND LOCKED POSITION, GIN RAILS UP X2, CALL LIGHT AND TABLE WITHIN EASY REACH, PATIENT IS ORIENTED TO ROOM AND STAFF. AIRBORNE PRECAUTION IMPLEMENTED. WILL CONTINUE TO MONITOR CLOSELY AND WILL CONTINUE PLAN OF CARE.
[2023-02-01 08:00] VITALS: BP 96/60
[2023-02-01] MEDS: ENSURE ENLIVE CHOC 237 ML CAN PO SCH ×2 (08:23→17:17)
[2023-02-01] MEDS: PANTOPRAZOLE 40 MG TABLET.DR PO SCH (08:23)
[2023-02-01] MEDS: SUCRALFATE 1 G TABLET PO SCH ×4 (08:23→21:36)
[2023-02-01] MEDS: LIPASE/PROTEASE/AMYLASE 1 EACH CAPSULE.DR PO SCH ×3 (08:24→17:17)
[2023-02-01] MEDS: FLUTICASONE/VILANTEROL 1 EACH BLST.W.DEV IH SCH (08:48)
[2023-02-01] MEDS: SERTRALINE HCL 50 MG TABLET PO SCH (08:48)
[2023-02-01] MEDS: MUPIROCIN OINT 2% 22 GM TUBE NS SCH ×2 (08:48→21:37)
[2023-02-01] MEDS: VALSARTAN 80 MG TABLET PO SCH (08:49)
[2023-02-01] MEDS: ASPIRIN 81 MG TAB.CHEW PO SCH (08:49)
[2023-02-01] MEDS: SPIRONOLACTONE 25 MG TABLET PO SCH (08:49)
[2023-02-01] MEDS: METOPROLOL SUCCINATE 50 MG TAB.SR.24H PO SCH (08:50)
[2023-02-01] MEDS ORDERED: MAGNESIUM OXIDE 400 MG TABLET PO ONE (10:00)
--- NOTE | 2023-02-01 11:37 | NUR ---
RN NOTES - CLASSROOM COORDINATOR RAHEL GLEASON SAW PT ORDERED MUCINEX 600 MG Q6H, CARRIED OUT
[2023-02-01] MEDS: GUAIFENESIN LA 600 MG TABLET.SA PO SCH ×3 (12:20→23:45)
--- NOTE | 2023-02-01 12:27 | NUR ---
RN NOTES - RECEIVED A CALL FROM PHARMACY TO HOLD VANCO ADMINISTRATION D/T BUN AND CREATININE LEVELS
[2023-02-01 16:00] VITALS: BP 133/77
[2023-02-01] MEDS: TAMSULOSIN 0.4 MG CAP.SR.24H PO SCH (17:17)
--- NOTE | 2023-02-01 19:25 | NUR ---
MS RN CLOSING NOTES PATIENT IN BED WITH HOB ELEVATED, PT IS AOX4. AIRBORNE PRECAUTION ISOLATION IN NEGATIVE PRESSURE ROOM MAINTAINED ORDERED. ON 2LPM VIA NC OXYGEN INHALATION. NOT IN ANY APPARENT ACUTE DISTRESS, DENIES PAIN WELL. STILL WITH IV ACCESS ON THE LFA G#20 INTACT AND FLUSHING WELL, SALINE LOCKED. ALL DUE MEDS GIVEN, ALL NEEDS MET. ALL SAFETY MEASURES MAINTAINED: BED LOCKED IN THE LOWEST AND LOCKED POSITION, SIDE RAILS UP X2, CALL LIGHT AND TABLE WITHIN EASY REACH. WILL ENDORSE TO RECREATION ATTENDANT NURSE.
--- NOTE | 2023-02-01 19:57 | NUR ---
RN OPENING NOTE PATIENT AWAKE IN BED. A/OX4. NO S/S OF DISTRESS, BREATHING WITHOUT DIFFICULTY ON 2L NC. LFA SL #20 INTACT AND PATENT. SAFETY MEASURES IN PLACE: BED LOCKED AND AT LOWEST POSITION, RAILS UP X2, CALL GARZA WITHIN REACH. WILL CONTINUE TO MONITOR PATIENT.
[2023-02-01 20:00] VITALS: BP 133/76
[2023-02-01] MEDS: ENOXAPARIN SODIUM 40 MG/0.4 ML DISP.SYRIN SQ SCH (21:35)
[2023-02-01] MEDS: ATORVASTATIN 10 MG TABLET PO SCH (21:36)
[2023-02-01] MEDS: MIRTAZAPINE 15 MG TABLET PO SCH (21:36)
[2023-02-02] MEDS: IPRATROPIUM NEB FS 0.5 MG/2.5 ML AMPUL.NEB NEB SCH ×4 (02:28→20:36)
[2023-02-02] MEDS: GUAIFENESIN LA 600 MG TABLET.SA PO SCH ×4 (05:37→23:36)
[2023-02-02] MEDS: PIPERACILLIN /TAZOBACTAM 3.375 G in IV D5W 100 ML IV SCH ×3 (05:38→21:28)
--- NOTE | 2023-02-02 06:15 | NUR ---
RN CLOSING NOTE PATIENT IS ASLEEP IN BED. A/OX4. NO S/S OF DISTRESS, BREATHING WITHOUT DIFFICULTY ON 2L NC. LFA #20 SL INTACT AND PATENT. SAFETY MEASURES IN PLACE: BED LOCKED AND AT LOWEST POSITION, RAILS UP X2, CALL GARZA WITHIN REACH. WILL ENDORSE TO NEXT SHIFT FOR [place].
--- NOTE | 2023-02-02 07:00 | NUR ---
MS RN OPENING NOTES: RECEIVED PT IN BED AWAKE,A/O X 4 AND ABLE TO MAKE NEEDS KNOWN. NO SOB OR CARDIAC DISTRESS. ON O2 INHALATION @ 2LPM VIA NC. ON DROPLET ISOLATION.IV ACCESS ON LFA GAUGE 20 PATENT, INTACT AND SALINE LOCKED. SAFETY MEASURES MAINTAINED: BED LOCKED AND IN LOWEST POSITION SIDE RAILS UP X2. CALL LIGHT IN EASY REACH AND WILL MONITOR PT ACCORDINGLY.
[2023-02-02] MEDS: PANTOPRAZOLE 40 MG TABLET.DR PO SCH (07:28)
[2023-02-02] MEDS: LIPASE/PROTEASE/AMYLASE 1 EACH CAPSULE.DR PO SCH ×3 (07:28→17:17)
[2023-02-02] MEDS: SUCRALFATE 1 G TABLET PO SCH ×4 (07:28→21:26)
[2023-02-02 08:00] VITALS: BP 134/90
[2023-02-02] MEDS: ENSURE ENLIVE CHOC 237 ML CAN PO SCH ×2 (08:37→16:39)
[2023-02-02] MEDS: FLUTICASONE/VILANTEROL 1 EACH BLST.W.DEV IH SCH (08:39)
[2023-02-02] MEDS: SPIRONOLACTONE 25 MG TABLET PO SCH (08:41)
[2023-02-02] MEDS: METOPROLOL SUCCINATE 50 MG TAB.SR.24H PO SCH (08:41)
[2023-02-02] MEDS: SERTRALINE HCL 50 MG TABLET PO SCH (08:41)
[2023-02-02] MEDS: VALSARTAN 80 MG TABLET PO SCH (08:41)
[2023-02-02] MEDS: ASPIRIN 81 MG TAB.CHEW PO SCH (08:41)
[2023-02-02] MEDS: VANCOMYCIN 0.75 GM in IV D5W 250 ML IV SCH (08:50)
[2023-02-02] MEDS: MUPIROCIN OINT 2% 22 GM TUBE NS SCH (09:37)
[2023-02-02 09:42] LABS: BASOPHILS % (AUTO) 0.4 % (0.0-2.0); EOSINOPHILS % (AUTO) 3.1 % (0.0-6.0); HEMATOCRIT 42 % (39-51); HEMOGLOBIN 13.1 g/dL (13.5-17.5); LYMPHOCYTES % (AUTO) 28.9 % (20.0-44.0); MEAN CORPUSCULAR HGB CONC 31 g/dl (31.0-36.0); MEAN CORPUSCULAR VOLUME 88 fL (80-96); MONOCYTES # (AUTO) 0.7 K/uL (0.1-1.30); MONOCYTES % (AUTO) 9.5 % (2.0-12.0); NEUTROPHILS # (AUTO) 4.1 K/uL (1.8-8.9); NEUTROPHILS % (AUTO) 58.1 % (43.0-81.0); PLATELET COUNT (AUTO) 181 K/uL (150-450); RED BLOOD CELL COUNT(AUTO) 4.75 MIL/uL (4.5-6.0)
[2023-02-02 10:57] LABS: CALCIUM, SERUM 9.2 mg/dL (8.5-10.1); CREATININE 1.8 mg/dL (0.6-1.3); POTASSIUM 4.3 mmol/L (3.5-5.1)
[2023-02-02 16:01] VITALS: BP 103/74
[2023-02-02] MEDS: TAMSULOSIN 0.4 MG CAP.SR.24H PO SCH (17:17)
--- NOTE | 2023-02-02 18:46 | NUR ---
MS RN CLOSING NOTES: PT IN BED AWAKE. ALERT AND ORIENTED X 4 AND ABLE TO MAKE NEEDS KNOWN. NO SOB OR CARDIAC DISTRESS NOTED. ON O2 INHALATION 2 2LPM VIA NASAL CANNULA AND SATURATING AT 98%. PT ON NEGATIVE PRESSURE ROOM ISOLATION AND MAINTAINED PPE PROTOCOL. IV ACCESS ON LEFT FOREARM GAUGE 22 PATENT, INTACT AND SALINE LOCKED. SAFETY MEASURES MAINTAINED. BED LOCKED AND IN LOWEST POSITION. SIDE RAILS UP X 2. CALL LIGHT IN EASY REACH FOR HELP AND WILL ENDORSE TO MOLD TOOLING TECHNICIAN RN FOR [place].
--- NOTE | 2023-02-02 19:51 | NUR ---
RN MS OPENING NOTES RECEIVED PATIENT IN BED, ON MODERATE HIGH BACK REST POSITION. HOOKED TO OXYGEN VIA NASAL CANNULA AT 2LPM SATURATING AT 98%. A/O X 4 WITH NO EPISODES OF CONFUSIONS. PATIENT IS CONTINENT AND ABLE TO GO TO THE REST ROOM. NO PAIN OR DISCOMFORT NOTED AT THIS TIME. NO COMPLAIN OF CHEST PAIN AT THIS TIME. WITH IV ACCESS AT LFA #20G PATENT AND INTACT. WAITING FOR 3RD RESULTS OF AFB. STILL ON ISOLATION PRECAUTIONS. KEPT BED ON LOWER LOCKED POSITION, KEPT SIDE RAILS UP X 2 ALL THE TIME, KEPT CALL LIGHT WITHIN AT REACH. WILL CONTINUE TO MONITOR FOR [place].
[2023-02-02 20:00] VITALS: BP 102/55
[2023-02-02] MEDS: ATORVASTATIN 10 MG TABLET PO SCH (21:26)
[2023-02-02] MEDS: MIRTAZAPINE 15 MG TABLET PO SCH (21:26)
[2023-02-02] MEDS: ENOXAPARIN SODIUM 40 MG/0.4 ML DISP.SYRIN SQ SCH (21:29)
[2023-02-03] MEDS: IPRATROPIUM NEB FS 0.5 MG/2.5 ML AMPUL.NEB NEB SCH ×3 (01:30→14:04)
[2023-02-03] MEDS: GUAIFENESIN LA 600 MG TABLET.SA PO SCH ×2 (05:31→14:30)
[2023-02-03] MEDS: PIPERACILLIN /TAZOBACTAM 3.375 G in IV D5W 100 ML IV SCH ×2 (05:31→14:00)
--- NOTE | 2023-02-03 06:31 | NUR ---
RN MS CLOSING NOTES PATIENT IS IN BED, ON MODERATE HIGH BACK REST POSITION. HOOKED TO OXYGEN VIA NASAL CANNULA AT 2LPM SATURATING AT 98%. A/O X 4 WITH NO EPISODES OF CONFUSIONS. PATIENT IS CONTINENT AND ABLE TO GO TO THE REST ROOM. NO PAIN OR DISCOMFORT NOTED AT THIS TIME. NO COMPLAIN OF CHEST PAIN AT THIS TIME. WITH IV ACCESS AT LFA #20G PATENT AND INTACT. WAITING FOR 3RD RESULTS OF AFB. STILL ON ISOLATION PRECAUTIONS. KEPT BED ON LOWER LOCKED POSITION, KEPT SIDE RAILS UP X 2 ALL THE TIME, KEPT CALL LIGHT WITHIN AT REACH. WILL CONTINUE TO MONITOR FOR [place].
[2023-02-03 07:00] VITALS: BP 109/62
--- NOTE | 2023-02-03 07:30 | NUR ---
MS RN OPENING NOTE (DAY SHIFT) RECEIVED PT IN BED AWAKE, A/O X 4, AND ABLE TO MAKE NEEDS KNOWN. NO SOB NOR CARDIAC DISTRESS. ON O2 INHALATION @ 2LPM VIA NC. ON AIRBORNE ISOLATION PRECAUTIONS. IV ACCESS ON LFA GAUGE #20 IS PATENT, INTACT AND INFUSINF IVPB ANTIBIOTIC. SAFETY MEASURES MAINTAINED: BED LOCKED AND IN LOWEST POSITION SIDE RAILS UP X2. CALL LIGHT IN EASY REACH. WILL MONITOR AND CARE FOR PATIENT PER HOSPITALIST PROVIDER'S POC.
[2023-02-03] MEDS: PANTOPRAZOLE 40 MG TABLET.DR PO SCH (07:37)
[2023-02-03] MEDS: SUCRALFATE 1 G TABLET PO SCH ×2 (07:37→14:30)
[2023-02-03] MEDS: FLUTICASONE/VILANTEROL 1 EACH BLST.W.DEV IH SCH (08:58)
[2023-02-03] MEDS: VANCOMYCIN 0.75 GM in IV D5W 250 ML IV SCH (08:58)
[2023-02-03] MEDS: ASPIRIN 81 MG TAB.CHEW PO SCH (08:59)
[2023-02-03] MEDS: LIPASE/PROTEASE/AMYLASE 1 EACH CAPSULE.DR PO SCH ×2 (08:59→14:31)
[2023-02-03] MEDS: SPIRONOLACTONE 25 MG TABLET PO SCH (08:59)
[2023-02-03 09:00] VITALS: BP 109/62
[2023-02-03] MEDS: METOPROLOL SUCCINATE 50 MG TAB.SR.24H PO SCH (09:00)
[2023-02-03] MEDS: VALSARTAN 80 MG TABLET PO SCH (09:00)
[2023-02-03] MEDS: ENSURE ENLIVE CHOC 237 ML CAN PO SCH (09:00)
[2023-02-03] MEDS: SERTRALINE HCL 50 MG TABLET PO SCH (09:01)
[2023-02-03] MEDS ORDERED: IV NS 0.9% 1,000 ML IV ONE (10:30)
[2023-02-03] MEDS ORDERED: AMOX-430 PO (12:37)
[2023-02-03] MEDS ORDERED: LACT-54 PO (12:37)
[2023-02-03] MEDS ORDERED: ACET325T53 PO (12:37)
[2023-02-03] MEDS ORDERED: SERT50TA PO (12:37)
[2023-02-03] MEDS ORDERED: ALBUT2 NEB (12:37)
[2023-02-03] MEDS ORDERED: FLUT1BLS IH (12:37)
[2023-02-03] MEDS ORDERED: IPRA0.2S9 NEB (12:37)
[2023-02-03] MEDS ORDERED: METO50TA7 PO (12:37)
[2023-02-03] MEDS ORDERED: PANT40TA49 PO (12:37)
[2023-02-03] MEDS ORDERED: VALS80TA31 PO (12:37)
[2023-02-03] MEDS ORDERED: GUAI600T53 PO (12:37)
[2023-02-03] MEDS ORDERED: ASPI-1169 PO (12:37)
[2023-02-03] MEDS ORDERED: MIRT-121 PO (12:37)
[2023-02-03] MEDS ORDERED: SPIR25TA6 PO (12:37)
--- NOTE | 2023-02-03 16:17 | NUR ---
MS PRESALES CONSULTANT NOTE Patient had three negative for AFB sputum specimens and a negative for TB Gold Quantiferon blood test. Dr. Villareal discontinued negative pressure airborne isolation precautions and started order for augmentin 1 tab PO BID today x 7 days. Patient tolerated well the removal of the PIV catheter # 22 gauge fully intact from his left forearm. Patient demonstrated understanding of his discharge home care instructions using teach back method in his own words. Report given to Charge nurse Jaylon of [facility]. Patient departed hospital via gurney at 16:15 hours to ambulance bound for the [facility] in [place].
== END 2023-02-03 16:15 | DRG 137 ==
LOC: ER 20:51 → TELE 01-25 00:49 → MED 01-29 12:25
PROVIDERS: ADMIT Student in an Organized Health Care Education/Training Program; ATTEND Nurse Practitioner Acute Care
DX: J85.2 Abscess of lung without pneumonia (principal); N17.0 Acute kidney failure with tubular necrosis; E44.1 Mild protein-calorie malnutrition; D69.6 Thrombocytopenia, unspecified; J96.10 Chronic respiratory failure, unspecified whether with hypoxia or hypercapnia; I11.0 Hypertensive heart disease with heart failure; I50.32 Chronic diastolic (congestive) heart failure; J43.9 Emphysema, unspecified; I25.10 Atherosclerotic heart disease of native coronary artery without angina pectoris; Z99.81 Dependence on supplemental oxygen; Z79.82 Long term (current) use of aspirin; Z79.51 Long term (current) use of inhaled steroids; Z79.899 Other long term (current) drug therapy; E78.5 Hyperlipidemia, unspecified; D64.9 Anemia, unspecified; E87.6 Hypokalemia; F41.9 Anxiety disorder, unspecified; I25.9 Chronic ischemic heart disease, unspecified; Z87.891 Personal history of nicotine dependence
CPT/HCPCS: 36415; 71045-TC; 71260-TC; 76770-TC; 80048-TC; 80076-TC; 80202-TC; 83735-TC; 83880; 84100-TC; 84484-TC; 85025-TC; 86480; 87081-TC; 87102-TC; 87116; 87206; 93307-TC; 94640-TC; 94799-TC; A4223; C9113; C9803; G0378; J0360; J0692; J1650; J2405; J2543; J2920; J2930; J3370; J3475; J7050; J7060; Q9967